=== PATIENT | female | born 1960 | race Caucasian/White ===

== ENCOUNTER 2018-10-21 20:51 | Observation (INO) ==
[2018-10-21 21:13] LABS: Basophils % 0.4 % (0.1-2.0); Eosinophils # 0.1 K/mm3 (0.0-0.4); Eosinophils % 2.2 % (0.1-12.0); Hematocrit 41.4 % (37.0-47.0); Hemoglobin 13.8 g/dL (12.2-16.2); Lymphocytes # 1.7 K/mm3 (0.7-4.5); Lymphocytes % 27.8 % (10-50); Mean Corpuscular HGB Conc 33.2 g/dL (31.8-35.4); Mean Corpuscular Hemoglobin 32.6 pg (27.0-31.2); Mean Corpuscular Volume 98.3 fl (81-99); Mean Platelet Volume 7.6 fl (7.4-10.4); Monocytes # 0.4 K/mm3 (0.1-1.0); Monocytes % 6.1 % (1.7-9.3); Neutrophils # 3.9 K/mm3 (1.8-7.8); Neutrophils % 63.4 % (37.0-80.0); Platelet Count 197 K/mm3 (142-424); Red Blood Count 4.22 M/mm3 (4.20-5.40); Red Cell Distribution Width 16.8 % (11.5-17.5); White Blood Count 6.2 K/mm3 (4.8-10.8)
--- NOTE | 2018-10-21 22:47 | Emergency Department Note ---
ED Disposition Clinical Impression: Multiple sclerosis Open fracture of wrist Qualifiers: Encounter type: initial encounter Laterality: left Qualified Code(s): S62.102B - Fracture of unspecified carpal bone, left wrist, initial encounter for open fracture Obesity Qualifiers: Obesity type: due to excess calories Obesity classification: adult class 3 (BMI >= 40) Serious obesity comorbidity presence: with serious comorbidity Body mass index: BMI 50.0-59.9 Qualified Code(s): E66.01 - Morbid (severe) obesity due to excess calories Disposition: Admitted As Inpatient Condition on Discharge: Serious - Critical Care Critical Care Time: No Attestation: On 10/21/18, the high probability of a clinically significant, sudden or life threatening deterioration of the following system(s) required my full and direct attention, intervention and personal management. The time I documented below is in addition to time spent performing reported procedures but includes the following listed in this critical care notation. Medical Decision Making - Medical Records Medical records reviewed: Yes: I reviewed the patient's medical records. - [place] Inquiry Pt receiving controlled substance: No Vital Signs: 10/21/18 20:52 10/21/18 23:00 10/21/18 23:30 Temperature 97.8 F 98.2 F Temperature Source Oral Oral Pulse Rate [Right] 72 72 77 Respiratory Rate 20 20 18 Blood Pressure [Right Arm] 167/67 H 158/69 H 161/78 H Blood Pressure Mean [Right Arm] 100 98 105 Blood Pressure Source [Right Arm] Automatic Cuff Automatic Cuff Blood Pressure Position [Right Arm] Supine Supine 02 Sat by Pulse Oximetry 95 95 92 L Oxygen Delivery Method Nasal Cannula Nasal Cannula Nasal Cannula Oxygen Flow Rate (LPM) 2 2 2 - Lab Data Lab results reviewed: Yes: I reviewed the patient's lab results. Lab Results 10/21/18 21:05: WBC 6.2, RBC 4.22, Hgb 13.8, Hct 41.4, MCV 98.3, MCH 32.6 H, MCHC 33.2, RDW 16.8, Plt Count 197, MPV 7.6, Neut % (Auto) 63.4, Lymph % (Auto) 27.8, [place] % (Auto) 6.1, Eos % (Auto) 2.2, Baso % (Auto) 0.4, Neut # (Auto) 3.9, Lymph # (Auto) 1.7, [place] # (Auto) 0.4, Eos # (Auto) 0.1, Baso # (Auto) 0.0 10/21/18 22:48: Sodium 138, Potassium 5.3 H, Chloride 98, Carbon Dioxide 36 H, Anion Gap 9.3, BUN 12, Creatinine 0.52 L, Estimated Creat Clear 101, Estimated GFR 121, Est GFR ( Amer) 146, Glucose 129 H, Calcium 8.7, Total Bilirubin 0.3, AST 21, ALT 23, Alkaline Phosphatase 70, Total Protein 7.7, Albumin 3.1 L, Globulin 4.6 H, Albumin/Globulin Ratio 0.7 L Result diagrams: 10/21/18 21:05 10/21/18 22:48 Orders (Tests/Meds): ED MEDICATIONS Generic Name Dose Route Start Last Admin Trade Name Freq PRN Reason Stop Dose Admin Cefazolin Sodium 1 gm/ Sodium 50 mls @ 100 mls/hr 10/21/18 23:00 10/21/18 23:03 Chloride IV 11/04/18 22:59 100 mls/hr Q8H DANAY Administration Protocol Gentamicin Sulfate 420 mg/ 110.5 mls @ 110.5 mls/hr 10/22/18 09:00 10/21/18 23:41 Sodium Chloride IV 11/05/18 08:59 110.5 mls/hr DAILY DANAY Administration Miscellaneous 1 each 10/21/18 23:30 10/21/18 23:40 Gentamicin Consult Request * 11/20/18 23:29 1 each CONSULT PHARMACY DANAY Administration Discontinued Medications Generic Name Dose Route Start Last Admin Trade Name Freq PRN Reason Stop Dose Admin Sodium Chloride 1,000 mls @ 999 mls/hr 10/21/18 21:15 10/21/18 21:08 Sod Chlor 0.9% 1000ml Bag IV 10/21/18 22:15 999 mls/hr .Q1H1M DANAY Administration Morphine Sulfate 2 mg 10/21/18 21:04 10/21/18 21:07 Morphine 2mg/Ml Syringe IV 10/21/18 21:05 2 mg ONCE ONE Administration Morphine Sulfate 2 mg 10/21/18 21:16 10/21/18 21:17 Morphine 2mg/Ml Syringe IV 10/21/18 21:17 2 mg ONCE ONE Administration Morphine Sulfate 2 mg 10/21/18 23:02 10/21/18 23:03 Morphine 2mg/Ml Syringe IV 10/21/18 23:03 2 mg ONCE ONE Administration Morphine Sulfate 2 mg 10/21/18 23:23 10/21/18 23:24 Morphine 2mg/Ml Syringe IV 10/21/18 23:24 2 mg ONCE ONE Administration Ondansetron HCl 4 mg 10/21/18 21:04 10/21/18 21:08 Zofran 4mg/2ml Vial IV 10/21/18 21:05 4 mg ONCE ONE Administration Tetanus/Diphtheria Toxoids 0.5 ml 10/21/18 22:53 10/21/18 22:54 Tenivac 0.5ml Syringe IM 10/21/18 22:54 0.5 ml .ONCE ONE Administration ORDERS Category Date Time Status CT cervical spine wo con Stat Cat Scan 10/21/18 21:[address] head/brain wo con Stat Cat Scan 10/21/18 21:[address] pelvis wo con Stat Cat Scan 10/21/18 21:52 Taken Forearm XR left 2 views [XR forearm LT 2V] Stat Exams 10/21/18 21:00 Taken Hand XR left minimum 3 views [XR hand LT min 3V] Stat Exams 10/21/18 21:03 Taken XR chest AP Stat Exams 10/21/18 21:00 Taken XR pelvis 1-2V Stat Exams 10/21/18 21:00 Taken ECG Request by /Vandana Stat Y 10/21/18 22:53 Ordered - Radiology Data #1 Image(s): Chest, Forearm, Wrist, Pelvis Image Reviewed: Yes I reviewed the patient's radiology image Preliminary Findings: Abnormal (open fx lt wrist ) - CT Data CT Scan: Head, C-Spine, Pelvis Time Received: 23:[address] Reviewed: Yes: I have viewed the radiologist's interpretation Preliminary Findings: No Fracture Seen - ECG Data Tracing #1 Normal Sinus Rhythm: Yes Ischemic changes: non-specific ST-T wave changes - Physician Consults Physician Consulted: francia Reason -: Pt condition Fall HPI - General Chief Complaint: Fall Stated Complaint: Fall Time Seen by Provider: 10/21/18 21:00 Mode of Arrival: EMS Source of Information: Patient, EMS, Medical Record Limitations: No Limitations Description of Symptoms (Recalled from ER Triage Doc. by RN): Per EMS from [place] pt had unwitnessed fall. Pt found floor beside her bed. Pt is poor historian to what happened. Pt is c/o left arm pain. 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 - History of Present Illness HPI Narrative: fell at [facility] tonight with injury to lt wrist complaint: fall Onset (ago): hour(s) Fall from: standing Fall witnessed: no Place fall occurred: care home/SNF Loss of consciousness: none Prolonged down time: no Symptoms prior to fall: none Context: tripped/slipped Location of injury: head, neck Location of injury - extremities: Left: forearm Severity: moderate Associated symptoms (after fall): denies - Related Data Home Medications Medication Instructions Recorded Confirmed acetaminophen 500 mg capsule 500 mg PO Q4H PRN cap 01/17/18 10/21/18 albuterol sulfate HFA 90 2 puff INHALATION TID g 01/17/18 10/21/18 mcg/actuation aerosol inhaler carvedilol 12.5 mg tablet 12.5 mg PO BID 01/17/18 10/21/18 dextromethorphan-guaifenesin 10 10 ml PO QIDP PRN 01/17/18 10/21/18 mg-100 mg/5 mL syrup diazepam 5 mg tablet 5 mg PO BID tab 01/17/18 10/21/18 divalproex 250 mg tablet,delayed 500 mg PO HS 01/17/18 10/21/18 release furosemide 40 mg tablet 40 mg PO BID tab 01/17/18 10/21/18 lactulose 10 gram/15 mL oral 30 ml PO DAILYP PRN 01/17/18 10/21/18 solution loperamide 2 mg capsule 2 mg PO Q3HP PRN 01/17/18 10/21/18 multivitamin with minerals capsule 1 tab-cap PO DAILY 01/17/18 10/21/18 norethindrone acetate 5 mg tablet 5 mg PO DAILY tab 01/17/18 10/21/18 olanzapine 15 mg tablet 30 mg PO QHS tab 01/17/18 10/21/18 potassium chloride ER 10 mEq 10 meq PO DAILY tab 01/17/18 10/21/18 tablet,extended release sertraline 100 mg tablet 100 mg PO Q24H 01/17/18 10/21/18 sertraline 50 mg tablet 50 mg PO Q24H 01/17/18 10/21/18 Allergies Allergy/AdvReac Type Severity Reaction Status Date / Time No Known Allergies Allergy Verified 10/21/18 08:18 [facility] History I have reviewed the patient's past medical history: Yes Medical History: Reports:: Congestive Heart Failure, Diabetes Mellitus Type 2, Hyperlipidemia, Hypertension, Lung Disease (CRF,COPD) Denies:: Diabetes Mellitus Type 1, Internal Pacemaker, Seizures Other Surgeries: No: Pacemaker - Social History Smoking Status: Never smoker Alcohol Intake: never - Psychiatric History Expresses thoughts of harming self/others: None Suicide Plan Description: No Plan ROS Obtained: Yes All systems reviewed & no additional complaints - Constitutional Constitutional: Denies fever(s) - Eyes Eyes: Denies change in vision, Reports other (eye surg today on rt -cataract surg ) - ENT Ears, Nose, Mouth, and Throat: Denies sore throat - Cardiovascular Cardiovascular: Denies chest pain - Respiratory Respiratory: No cough - Gastrointestinal Gastrointestingal: Denies: abdominal pain - Genitourinary Female Genitourinary: Denies hematuria - Musculoskeletal Musculoskeletal: Reports as per HPI, Reports joint pain, Reports joint swelling, Reports limited range of motion - Integumentary/Breasts Skin/Breast: Denies rash - Neurologic Neurologic: Denies seizure-like activity Physical Exam - General General appearance: alert, in no apparent distress, obese - Head Head exam: normocephalic - Eye Eye exam: Present: other (rt eye covered with patch ) - ENT ENT exam: Present: mucous membranes dry - Neck Neck exam: Present: trachea midline - Respiratory Respiratory exam: Present: other (dec bs bilat ). Absent: respiratory distress - Cardiovascular Cardiovascular exam: Present: regular rate, systolic murmur - Abdominal Exam Abdominal exam: Present: soft - Expanded Upper Extremity Exam Left Forearm/Wrist exam: Present: tenderness, swelling, other (open fx ) - Back Exam Back exam: Present: other (pelvis - stable ) - Neurological Exam Neurological exam: Present: alert, CN II-XII intact - Psychiatric Psychiatric exam: Absent: anxious - Skin Skin exam: Present: other (open fx lt wrist )
[2018-10-21 23:16] LABS: Albumin Level 3.1 gm/dL (3.4-5.0); Albumin/Globulin Ratio 0.7 (1.1-1.8); Anion Gap 9.3 mEq/L (5-15); Bilirubin,Total 0.3 mg/dL (0.2-1.0); Calcium 8.7 mg/dL (8.5-10.1); Globulin 4.6 gm/dl (1.3-3.2); Potassium 5.3 mmoL/L (3.5-5.1); Total Protein,Serum 7.7 gm/dL (6.4-8.2)
[2018-10-22 05:47] LABS: Basophils % 0.3 % (0.1-2.0); Eosinophils # 0.1 K/mm3 (0.0-0.4); Eosinophils % 1.7 % (0.1-12.0); Hematocrit 40.5 % (37.0-47.0); Hemoglobin 13.5 g/dL (12.2-16.2); Lymphocytes % 14.5 % (10-50); Mean Corpuscular HGB Conc 33.5 g/dL (31.8-35.4); Mean Corpuscular Hemoglobin 32.7 pg (27.0-31.2); Mean Corpuscular Volume 97.9 fl (81-99); Mean Platelet Volume 7.9 fl (7.4-10.4); Monocytes # 0.4 K/mm3 (0.1-1.0); Neutrophils # 5.3 K/mm3 (1.8-7.8); Neutrophils % 77.4 % (37.0-80.0); Platelet Count 125 K/mm3 (142-424); Red Blood Count 4.14 M/mm3 (4.20-5.40); Red Cell Distribution Width 17.2 % (11.5-17.5); White Blood Count 6.8 K/mm3 (4.8-10.8)
[2018-10-22 06:04] LABS: Anion Gap 5.8 mEq/L (5-15); Calcium 8.2 mg/dL (8.5-10.1); Potassium 4.8 mmoL/L (3.5-5.1)
--- NOTE | 2018-10-22 07:23 | Pharmacy Consult Notes ---
[facility] Pharmacy VTE Monitoring - Patient Demographics Admission date: 10/22/18 Report Date: 10/22/18 Time: 07:23 Allergies/Adverse Reactions: Patient Allergies No Known Allergies Allergy (Verified 10/21/18 08:18) Height: 1.52 m Weight: 128.452 kg Patient Problems: Current Active Problems Open fracture of wrist (Acute) Obesity (Acute) Multiple sclerosis (Chronic) - VTE Risk Labs: VTE Related Lab Results Hgb 13.5 g/dL (12.2-16.2) 10/22/18 05:35 Hct 40.5 % (37.0-47.0) 10/22/18 05:35 Plt Count 125 K/mm3 (142-424) L D 10/22/18 05:35 BUN 10 mg/dL (7-18) 10/22/18 05:35 Creatinine 0.72 mg/dL (0.55-1.02) D 10/22/18 05:35 Estimated Creat Clear 60 mL/min (50-200) 10/22/18 05:35 Was VTE Risk Assessment Performed: Yes VTE Score: 6 VTE Risk Level: Moderate Risk Clinical Trial Participant: No - Prophylaxis VTE Prophylaxis Ordered?: Yes Types of VTE Prophylaxis: TEDS Knee High
--- NOTE | 2018-10-22 08:01 | Pharmacy Consult Notes ---
- Pharmacy Consult Date: 10/22/18 Time: 07:59 Referring provider: DR. BLANDON Reason for Consult:: GENTAMICIN DOSING Allergies and ADEs:: Allergies Allergy/AdvReac Type Severity Reaction Status Date / Time No Known Allergies Allergy Verified 10/21/18 08:18 Home Medications:: Home Medications Medication Instructions Recorded Confirmed Type acetaminophen 500 mg capsule 500 mg PO Q4HP PRN cap 01/17/18 10/22/18 History albuterol sulfate HFA 90 2 puff INHALATION TID g 01/17/18 10/21/18 History mcg/actuation aerosol inhaler dextromethorphan-guaifenesin 10 10 ml PO QIDP PRN 01/17/18 10/21/18 History mg-100 mg/5 mL syrup diazepam 5 mg tablet 5 mg PO BID tab 01/17/18 10/21/18 History divalproex 250 mg tablet,delayed 500 mg PO HS 01/17/18 10/21/18 History release furosemide 40 mg tablet 40 mg PO BID tab 01/17/18 10/21/18 History lactulose 10 gram/15 mL oral 30 ml PO DAILYP PRN 01/17/18 10/21/18 History solution loperamide 2 mg capsule 2 mg PO Q3HP PRN 01/17/18 10/21/18 History multivitamin with minerals capsule 1 cap PO DAILY 01/17/18 10/22/18 History norethindrone acetate 5 mg tablet 5 mg PO DAILY tab 01/17/18 10/21/18 History olanzapine 15 mg tablet 30 mg PO HS tab 01/17/18 10/22/18 History potassium chloride ER 10 mEq 10 meq PO DAILY tab 01/17/18 10/21/18 History tablet,extended release sertraline 100 mg tablet 100 mg PO DAILY 01/17/18 10/22/18 History sertraline 50 mg tablet 50 mg PO DAILY 01/17/18 10/22/18 History Carvedilol [Coreg 12.5mg 12.5 mg PO BID 10/22/18 10/22/18 History Tablet] Carvedilol [Coreg 25mg Tablet] 25 mg PO BID 10/22/18 10/22/18 History Ipratropium/Albuterol Sulfate 3 ml IH QIDP PRN 10/22/18 10/22/18 History [Duoneb 3mL neb] Height: 1.52 m Weight: 128.452 kg Laboratory Results:: Laboratory Results - last 24 hr 10/21/18 21:05: WBC 6.2, RBC 4.22, Hgb 13.8, Hct 41.4, MCV 98.3, MCH 32.6 H, MCHC 33.2, RDW 16.8, Plt Count 197, MPV 7.6, Neut % (Auto) 63.4, Lymph % (Auto) 27.8, [place] % (Auto) 6.1, Eos % (Auto) 2.2, Baso % (Auto) 0.4, Neut # (Auto) 3.9, Lymph # (Auto) 1.7, [place] # (Auto) 0.4, Eos # (Auto) 0.1, Baso # (Auto) 0.0 10/21/18 22:48: Sodium 138, Potassium 5.3 H, Chloride 98, Carbon Dioxide 36 H, Anion Gap 9.3, BUN 12, Creatinine 0.52 L, Estimated Creat Clear 101, Estimated GFR 121, Est GFR ( Amer) 146, Glucose 129 H, Calcium 8.7, Total Bilirubin 0.3, AST 21, ALT 23, Alkaline Phosphatase 70, Total Protein 7.7, Albumin 3.1 L, Globulin 4.6 H, Albumin/Globulin Ratio 0.7 L 10/22/18 05:35: WBC 6.8, RBC 4.14 L, Hgb 13.5, Hct 40.5, MCV 97.9, MCH 32.7 H, MCHC 33.5, RDW 17.2, Plt Count 125 L D, MPV 7.9, Neut % (Auto) 77.4, Lymph % (Auto) 14.5, [place] % (Auto) 6.0, Eos % (Auto) 1.7, Baso % (Auto) 0.3, Neut # (Auto) 5.3, Lymph # (Auto) 1.0, [place] # (Auto) 0.4, Eos # (Auto) 0.1, Baso # (Auto) 0.0 10/22/18 05:35: Sodium 141, Potassium 4.8, Chloride 99, Carbon Dioxide 41 H*, Anion Gap 5.8, BUN 10, Creatinine 0.72 D, Estimated Creat Clear 60, Estimated GFR 83, Est GFR ( Amer) 100 D, Glucose 114 H, Calcium 8.2 L 10/22/18 05:35: Random Gentamicin 7.2 Medical History: Reports:: Congestive Heart Failure, Diabetes Mellitus Type 2, Hyperlipidemia, Hypertension, Lung Disease (CRF,COPD) Denies:: Cancer, Diabetes Mellitus Type 1, Internal Pacemaker, MRSA, Seizures Assessment and Plan - Assessment and plan all Dx Assessment and Plan for all problems:: PATIENT RECEIVED GENTAMICIN 420 MG X1 DOSE IN ER OVERNIGHT. RECOMMEND AT THIS TIME TO CONTINUE WITH GENTAMICIN 420 MG Q24H DOSING STARTING AGAIN AT 2200 TONIGHT. WILL OBTAIN LEVELS AT 4 AND 12 HOUR POST INFUSION TODAY TO DETERMINE CLEARANCE OF GENTAMICIN. PHARMACY WILL FOLLOW DAILY AND ADJUST APPROPRIATE. RENATE FORD, TIFFANYD
--- NOTE | 2018-10-22 08:28 | History & Physical Report ---
*Admission Date: 10/22/18 *Chief complaint: fall *History of present illness: [facility] fall [facility] pm with open fx lt wrist - pt or [facility] with no specific details - she had recent eye surg - does have some hx of falls - she was seen in the ed with open fx lt wrist - no other fx noted [facility] History I have reviewed the patient's past medical history: Yes Medical History: Reports:: Congestive Heart Failure, Diabetes Mellitus Type 2, Hyperlipidemia, Hypertension, Lung Disease (CRF,COPD) Denies:: Cancer, Diabetes Mellitus Type 1, Internal Pacemaker, MRSA, Seizures Other Medical History: Reports: Anemia, Cataracts, Hormone Therapy Other Surgeries: Yes: No Previous Surgery. No: Pacemaker Amputation: No Fractures: No - *Social History Smoking Status: Never smoker Alcohol Intake: never Occupational Status: other Housing: halfway Household Members: none - Psychiatric History Expresses thoughts of harming self/others: None Suicide Plan Description: No Plan *Family Hx:: Unable to obtain Review of Systems - Review of Systems Review of systems:: pertinent systems reviewed and negative unless documented below - Constitutional Denies fever(s) - Eyes Reports other (recent eye surg ), Denies change in vision - ENT Denies sore throat - *Cardiovascular Denies chest pain - *Respiratory Denies cough - *Gastrointestinal Denies vomiting - *Genitourinary Denies blood in urine - *Musculoskeletal Reports joint pain, Reports joint swelling, Reports limited joint movement - Integumentary/Breasts Denies rash - *Neurologic Denies seizure-like activity - Psychiatric Denies anxiety Meds Home Medications Medication Instructions Recorded Confirmed Type acetaminophen 500 mg capsule 500 mg PO Q4HP PRN cap 01/17/18 10/22/18 History albuterol sulfate HFA 90 2 puff INHALATION TID g 01/17/18 10/21/18 History mcg/actuation aerosol inhaler dextromethorphan-guaifenesin 10 10 ml PO QIDP PRN 01/17/18 10/21/18 History mg-100 mg/5 mL syrup diazepam 5 mg tablet 5 mg PO BID tab 01/17/18 10/21/18 History divalproex 250 mg tablet,delayed 500 mg PO HS 01/17/18 10/21/18 History release furosemide 40 mg tablet 40 mg PO BID tab 01/17/18 10/21/18 History lactulose 10 gram/15 mL oral 30 ml PO DAILYP PRN 01/17/18 10/21/18 History solution loperamide 2 mg capsule 2 mg PO Q3HP PRN 01/17/18 10/21/18 History multivitamin with minerals capsule 1 cap PO DAILY 01/17/18 10/22/18 History norethindrone acetate 5 mg tablet 5 mg PO DAILY tab 01/17/18 10/21/18 History olanzapine 15 mg tablet 30 mg PO HS tab 01/17/18 10/22/18 History potassium chloride ER 10 mEq 10 meq PO DAILY tab 01/17/18 10/21/18 History tablet,extended release sertraline 100 mg tablet 100 mg PO DAILY 01/17/18 10/22/18 History sertraline 50 mg tablet 50 mg PO DAILY 01/17/18 10/22/18 History Carvedilol [Coreg 12.5mg 12.5 mg PO BID 10/22/18 10/22/18 History Tablet] Carvedilol [Coreg 25mg Tablet] 25 mg PO BID 10/22/18 10/22/18 History Ipratropium/Albuterol Sulfate 3 ml IH QIDP PRN 10/22/18 10/22/18 History [Duoneb 3mL neb] Allergies Allergy/AdvReac Type Severity Reaction Status Date / Time No Known Allergies Allergy Verified 10/21/18 08:18 Exam Vital signs and Labs for Last 24 Hours: Temp Pulse Resp BP Pulse Ox 97.1 F L 91 H 18 145/85 H 91 L 10/22/18 08:00 10/22/18 08:00 10/22/18 08:00 10/22/18 08:00 10/22/18 08:00 Laboratory Results - last 24 hr 10/21/18 21:05: WBC 6.2, RBC 4.22, Hgb 13.8, Hct 41.4, MCV 98.3, MCH 32.6 H, MCHC 33.2, RDW 16.8, Plt Count 197, MPV 7.6, Neut % (Auto) 63.4, Lymph % (Auto) 27.8, [place] % (Auto) 6.1, Eos % (Auto) 2.2, Baso % (Auto) 0.4, Neut # (Auto) 3.9, Lymph # (Auto) 1.7, [place] # (Auto) 0.4, Eos # (Auto) 0.1, Baso # (Auto) 0.0 10/21/18 22:48: Sodium 138, Potassium 5.3 H, Chloride 98, Carbon Dioxide 36 H, Anion Gap 9.3, BUN 12, Creatinine 0.52 L, Estimated Creat Clear 101, Estimated GFR 121, Est GFR ( Amer) 146, Glucose 129 H, Calcium 8.7, Total Bilirubin 0.3, AST 21, ALT 23, Alkaline Phosphatase 70, Total Protein 7.7, Albumin 3.1 L, Globulin 4.6 H, Albumin/Globulin Ratio 0.7 L 10/22/18 05:35: WBC 6.8, RBC 4.14 L, Hgb 13.5, Hct 40.5, MCV 97.9, MCH 32.7 H, MCHC 33.5, RDW 17.2, Plt Count 125 L D, MPV 7.9, Neut % (Auto) 77.4, Lymph % (Auto) 14.5, [place] % (Auto) 6.0, Eos % (Auto) 1.7, Baso % (Auto) 0.3, Neut # (Auto) 5.3, Lymph # (Auto) 1.0, [place] # (Auto) 0.4, Eos # (Auto) 0.1, Baso # (Auto) 0.0 10/22/18 05:35: Sodium 141, Potassium 4.8, Chloride 99, Carbon Dioxide 41 H*, Anion Gap 5.8, BUN 10, Creatinine 0.72 D, Estimated Creat Clear 60, Estimated GFR 83, Est GFR ( Amer) 100 D, Glucose 114 H, Calcium 8.2 L 10/22/18 05:35: Random Gentamicin 7.2 I & O for Last 24 hours: Intake & Output 10/19/18 10/20/18 10/21/18 10/22/18 11:59 11:59 11:59 11:59 Intake Total 348 / 348 Balance 348 / 348 Weight 283 lb 3 oz - Constitutional no acute distress, obese - *Routine HEENT Exam Head: Present: normocephalic Eye: Present: EOMI, PERRL ENT: Present: mucous membranes dry - *Routine Neck Exam Present: supple - *Routine Respiratory Exam Present: CTA bilaterally - *Routine Cardiovascular Exam Present: RRR, murmur - *Routine Abdominal Exam Present: soft - *Routine Extremities Exam Absent: calf tenderness Comments: swollen lt wrist - dressed but has small open area lt wrist - *Routine Skin Exam Comments: open fx - *Routine Neurological Exam Present: alert, CN II-XII intact - Routine Psychiatric Exam Present: unable to assess Assessment and Plan (1) Open fracture of wrist Current visit: Yes Status: Acute Qualifiers: Encounter type: initial encounter Laterality: left Qualified Code(s): S62.102B - Fracture of unspecified carpal bone, left wrist, initial encounter for open fracture Category: Medical Code(s): S62.109B - Fracture of unspecified carpal bone, unspecified wrist, initial encounter for open fracture (2) Obesity Current visit: Yes Status: Acute Qualifiers: Obesity type: due to excess calories Obesity classification: adult class 3 (BMI >= 40) Serious obesity comorbidity presence: with serious comorbidity Body mass index: BMI 50.0-59.9 Qualified Code(s): E66.01 - Morbid (severe) obesity due to excess calories; Z68.43 - Body mass index (BMI) 50-59.9, adult Category: Medical Code(s): E66.9 - Obesity, unspecified
--- NOTE | 2018-10-22 08:46 | Consult Report ---
*Admission Date: 10/22/18 *Chief complaint: Fall-left distal radius fracture *History of present illness: Patient is a 58-year-old female admitted to hospital via the ER for management of a grade 1 open fracture of her left distal radius. Patient is a resident of skilled nursing and has history of dementia, multiple sclerosis, heart failure, hypertension, COPD, type 2 diabetes mellitus, morbid obesity, paranoid schizophrenia and anemia among others. Given her mental status, patient is not able to give any history. History as per the ER notes. The ER notes is documented as patient having had an unwitnessed fall at the skilled nursing. Patient was apparently found on the floor beside her bed. The previous day she had cataract surgery at [facility]. On evaluation in the ER, a small, about 0.5 cm, laceration was noted over the ulnar aspect of the left wrist. X-ray showed a comminuted and displaced intra-articular fracture of the left distal radius. Patient was started on IV Ancef and gentamicin, splinted and admitted to hospital for further management. I was consulted for orthopedic input and management. Review of Systems - Review of Systems Review of systems:: unable to obtain [facility] History I have reviewed the patient's past medical history: Yes Medical History: Reports:: Congestive Heart Failure, Diabetes Mellitus Type 2, Hyperlipidemia, Hypertension, Lung Disease (CRF,COPD) Denies:: Cancer, Diabetes Mellitus Type 1, Internal Pacemaker, MRSA, Seizures Other Medical History: Reports: Anemia, Cataracts, Hormone Therapy Other Surgeries: Yes: No Previous Surgery. No: Pacemaker Amputation: No Fractures: No - *Social History Smoking Status: Never smoker Alcohol Intake: never Occupational Status: other Housing: skilled nursing Household Members: none - Psychiatric History Expresses thoughts of harming self/others: None Suicide Plan Description: No Plan *Family Hx:: Unable to obtain Meds Home Medications Medication Instructions Recorded Confirmed Type acetaminophen 500 mg capsule 500 mg PO Q4HP PRN cap 01/17/18 10/22/18 History albuterol sulfate HFA 90 2 puff INHALATION TID g 01/17/18 10/21/18 History mcg/actuation aerosol inhaler dextromethorphan-guaifenesin 10 10 ml PO QIDP PRN 01/17/18 10/21/18 History mg-100 mg/5 mL syrup diazepam 5 mg tablet 5 mg PO BID tab 01/17/18 10/21/18 History divalproex 250 mg tablet,delayed 500 mg PO HS 01/17/18 10/21/18 History release furosemide 40 mg tablet 40 mg PO BID tab 01/17/18 10/21/18 History lactulose 10 gram/15 mL oral 30 ml PO DAILYP PRN 01/17/18 10/21/18 History solution loperamide 2 mg capsule 2 mg PO Q3HP PRN 01/17/18 10/21/18 History multivitamin with minerals capsule 1 cap PO DAILY 01/17/18 10/22/18 History norethindrone acetate 5 mg tablet 5 mg PO DAILY tab 01/17/18 10/21/18 History olanzapine 15 mg tablet 30 mg PO HS tab 01/17/18 10/22/18 History sertraline 100 mg tablet 100 mg PO DAILY 01/17/18 10/22/18 History Carvedilol [Coreg 12.5mg 12.5 mg PO BID 10/22/18 10/22/18 History Tablet] Ipratropium/Albuterol Sulfate 3 ml IH QIDP PRN 10/22/18 10/22/18 History [Duoneb 3mL neb] Allergies Allergy/AdvReac Type Severity Reaction Status Date / Time No Known Allergies Allergy Verified 10/21/18 08:18 Exam Vital signs and Labs for Last 24 Hours: Temp Pulse Resp BP Pulse Ox 97.1 F L 91 H 18 145/85 H 91 L 10/22/18 08:00 10/22/18 08:00 10/22/18 08:00 10/22/18 08:00 10/22/18 08:00 Laboratory Results - last 24 hr 10/21/18 21:05: WBC 6.2, RBC 4.22, Hgb 13.8, Hct 41.4, MCV 98.3, MCH 32.6 H, MCHC 33.2, RDW 16.8, Plt Count 197, MPV 7.6, Neut % (Auto) 63.4, Lymph % (Auto) 27.8, [place] % (Auto) 6.1, Eos % (Auto) 2.2, Baso % (Auto) 0.4, Neut # (Auto) 3.9, Lymph # (Auto) 1.7, [place] # (Auto) 0.4, Eos # (Auto) 0.1, Baso # (Auto) 0.0 10/21/18 22:48: Sodium 138, Potassium 5.3 H, Chloride 98, Carbon Dioxide 36 H, Anion Gap 9.3, BUN 12, Creatinine 0.52 L, Estimated Creat Clear 101, Estimated GFR 121, Est GFR ( Amer) 146, Glucose 129 H, Calcium 8.7, Total Bilirubin 0.3, AST 21, ALT 23, Alkaline Phosphatase 70, Total Protein 7.7, Albumin 3.1 L, Globulin 4.6 H, Albumin/Globulin Ratio 0.7 L 10/22/18 05:35: WBC 6.8, RBC 4.14 L, Hgb 13.5, Hct 40.5, MCV 97.9, MCH 32.7 H, MCHC 33.5, RDW 17.2, Plt Count 125 L D, MPV 7.9, Neut % (Auto) 77.4, Lymph % (Auto) 14.5, [place] % (Auto) 6.0, Eos % (Auto) 1.7, Baso % (Auto) 0.3, Neut # (Auto) 5.3, Lymph # (Auto) 1.0, [place] # (Auto) 0.4, Eos # (Auto) 0.1, Baso # (Auto) 0.0 10/22/18 05:35: Sodium 141, Potassium 4.8, Chloride 99, Carbon Dioxide 41 H*, Anion Gap 5.8, BUN 10, Creatinine 0.72 D, Estimated Creat Clear 60, Estimated GFR 83, Est GFR ( Amer) 100 D, Glucose 114 H, Calcium 8.2 L 10/22/18 05:35: Random Gentamicin 7.2 I & O for Last 24 hours: Intake & Output 10/19/18 10/20/18 10/21/18 10/22/18 11:59 11:59 11:59 11:59 Intake Total 348 / 348 Balance 348 / 348 Weight 283 lb 3 oz - Constitutional no acute distress, obese, somnolent - *Routine HEENT Exam Head: Present: normocephalic, atraumatic ENT: Present: mucous membranes moist - *Routine Neck Exam Present: supple, full ROM, trachea midline. Absent: lymphadenopathy - *Routine Respiratory Exam Present: CTA bilaterally. Absent: respiratory distress - *Routine Cardiovascular Exam Present: RRR, Normal S1, Normal S2 - *Routine Abdominal Exam Present: soft, normoactive bowel sounds. Absent: organomegaly - *Routine Extremities Exam Comments: On examination of the left upper extremity, she has a removable wrist splint and dressings over the volar ulnar aspect. Out of the splint and dressings, there is a small, 0.5-1 cm, transverse laceration over the volar ulnar aspect of the left wrist just distal to the ulnar head. Minimal bleeding noted from the wound. There is diffuse swelling, ecchymosis and tenderness all around the distal forearm and wrist joint. There is also diffuse swelling of her hand and fingers. No swelling or tenderness noted over the elbow joint. She is actively moving the fingers. Capillary refill is brisk. Difficult to evaluate for sensory status given the patient's mental condition. No other acute injuries noted. Diagnostic imaging: X-rays of her left forearm/wrist and hand reviewed along with radiologist report. The x-rays are showing a comminuted, displaced distal radius fracture with intra-articular extension to both the distal radial and radiocarpal joints. The proximal forearm and elbow joint not show any acute findings. Minor degenerative changes noted over the radiocapitellar joint. - *Routine Skin Exam Present: warm, normal turgor, wounds (Left wrist) - *Routine Neurological Exam Present: alert, moving all extremities - Routine Psychiatric Exam Present: cooperative Results - Labs Result Diagrams: 10/22/18 05:35 10/22/18 05:35 Labs: Abnormal lab results 10/21/18 10/21/18 10/22/18 Range/Units 21:05 22:48 05:35 RBC 4.14 L (4.20-5.40) M/mm3 MCH 32.6 H 32.7 H (27.0-31.2) pg Plt Count 125 L D (142-424) K/mm3 Potassium 5.3 H (3.5-5.1) mmoL/L Carbon Dioxide 36 H (21.0-32.0) mmol/L Creatinine 0.52 L (0.55-1.02) mg/dL Glucose 129 H (74-106) mg/dL Calcium (8.5-10.1) mg/dL Albumin 3.1 L (3.4-5.0) gm/dL Globulin 4.6 H (1.3-3.2) gm/dl Albumin/Globulin Ratio 0.7 L (1.1-1.8) 10/22/18 Range/Units 05:35 RBC (4.20-5.40) M/mm3 MCH (27.0-31.2) pg Plt Count (142-424) K/mm3 Potassium (3.5-5.1) mmoL/L Carbon Dioxide 41 H* (21.0-32.0) mmol/L Creatinine (0.55-1.02) mg/dL Glucose 114 H (74-106) mg/dL Calcium 8.2 L (8.5-10.1) mg/dL Albumin (3.4-5.0) gm/dL Globulin (1.3-3.2) gm/dl Albumin/Globulin Ratio (1.1-1.8) H & H 10/21/18 10/22/18 Range/Units 21:05 05:35 Hgb 13.8 13.5 (12.2-16.2) g/dL Hct 41.4 40.5 (37.0-47.0) % All other labs normal. Assessment and Plan (1) Open fracture of wrist Status: Acute Qualifiers: Encounter type: initial encounter Laterality: left Qualified Code(s): S62.102B - Fracture of unspecified carpal bone, left wrist, initial encounter for open fracture Category: Medical Code(s): S62.109B - Fracture of unspecified carpal bone, unspecified wrist, initial encounter for open fracture (2) Obesity Status: Acute Qualifiers: Obesity type: due to excess calories Obesity classification: adult class 3 (BMI >= 40) Serious obesity comorbidity presence: with serious comorbidity Body mass index: BMI 50.0-59.9 Qualified Code(s): E66.01 - Morbid (severe) obesity due to excess calories; Z68.43 - Body mass index (BMI) 50-59.9, adult Category: Medical Code(s): E66.9 - Obesity, unspecified - Assessment and plan all Dx Assessment and Plan for all problems:: Patient is a 58-year-old female who sustained a grade 1 open displaced fracture of her left distal radius following an unwitnessed fall at the skilled nursing. The distal radius fracture is displaced, comminuted and unstable with intra-articular extension. Patient was admitted from the ER for observation, started on IV antibiotics and prepared for surgery. Following a detailed evaluation, and recommended surgery in the form of wound debridement left wrist and open reduction and internal fixation of the left distal radius fracture. Depending on the state of the wound and contamination, she may need multiple procedures for debridement and may need delayed closure of the laceration. We have contacted the patient's healthcare proxy and informed as to the management plan, risks and benefits and alternatives. A verbal consent was obtained. The operative site/side was marked. Betadine gauze dressing applied over the laceration and the splint was reapplied. Following appropriate medical and anesthetic evaluation, I am planning to take her to the OR for surgery at the earliest opportunity. Medical management as per Dr. Michaels.
--- NOTE | 2018-10-22 14:15 | Pharmacy Consult Notes ---
- Pharmacy Consult Date: 10/22/18 Time: 14:11 Referring provider: DR. BLANDON Reason for Consult:: GENTAMICIN LEVELS Allergies and ADEs:: Allergies Allergy/AdvReac Type Severity Reaction Status Date / Time No Known Allergies Allergy Verified 10/21/18 08:18 Home Medications:: Home Medications Medication Instructions Recorded Confirmed Type acetaminophen 500 mg capsule 500 mg PO Q4HP PRN cap 01/17/18 10/22/18 History albuterol sulfate HFA 90 2 puff INHALATION TID g 01/17/18 10/21/18 History mcg/actuation aerosol inhaler dextromethorphan-guaifenesin 10 10 ml PO QIDP PRN 01/17/18 10/21/18 History mg-100 mg/5 mL syrup diazepam 5 mg tablet 5 mg PO BID tab 01/17/18 10/21/18 History divalproex 250 mg tablet,delayed 500 mg PO HS 01/17/18 10/21/18 History release furosemide 40 mg tablet 40 mg PO BID tab 01/17/18 10/21/18 History lactulose 10 gram/15 mL oral 30 ml PO DAILYP PRN 01/17/18 10/21/18 History solution loperamide 2 mg capsule 2 mg PO Q3HP PRN 01/17/18 10/21/18 History multivitamin with minerals capsule 1 cap PO DAILY 01/17/18 10/22/18 History norethindrone acetate 5 mg tablet 5 mg PO DAILY tab 01/17/18 10/21/18 History olanzapine 15 mg tablet 30 mg PO HS tab 01/17/18 10/22/18 History potassium chloride ER 10 mEq 10 meq PO DAILY tab 01/17/18 10/21/18 History tablet,extended release sertraline 100 mg tablet 100 mg PO DAILY 01/17/18 10/22/18 History sertraline 50 mg tablet 50 mg PO DAILY 01/17/18 10/22/18 History Carvedilol [Coreg 12.5mg 12.5 mg PO BID 10/22/18 10/22/18 History Tablet] Carvedilol [Coreg 25mg Tablet] 25 mg PO BID 10/22/18 10/22/18 History Ipratropium/Albuterol Sulfate 3 ml IH QIDP PRN 10/22/18 10/22/18 History [Duoneb 3mL neb] Height: 1.52 m Weight: 128.452 kg Laboratory Results:: Laboratory Results - last 24 hr 10/21/18 21:05: WBC 6.2, RBC 4.22, Hgb 13.8, Hct 41.4, MCV 98.3, MCH 32.6 H, MCHC 33.2, RDW 16.8, Plt Count 197, MPV 7.6, Neut % (Auto) 63.4, Lymph % (Auto) 27.8, [place] % (Auto) 6.1, Eos % (Auto) 2.2, Baso % (Auto) 0.4, Neut # (Auto) 3.9, Lymph # (Auto) 1.7, [place] # (Auto) 0.4, Eos # (Auto) 0.1, Baso # (Auto) 0.0 10/21/18 22:48: Sodium 138, Potassium 5.3 H, Chloride 98, Carbon Dioxide 36 H, Anion Gap 9.3, BUN 12, Creatinine 0.52 L, Estimated Creat Clear 101, Estimated GFR 121, Est GFR ( Amer) 146, Glucose 129 H, Calcium 8.7, Total Bilirubin 0.3, AST 21, ALT 23, Alkaline Phosphatase 70, Total Protein 7.7, Albumin 3.1 L, Globulin 4.6 H, Albumin/Globulin Ratio 0.7 L 10/22/18 05:35: WBC 6.8, RBC 4.14 L, Hgb 13.5, Hct 40.5, MCV 97.9, MCH 32.7 H, MCHC 33.5, RDW 17.2, Plt Count 125 L D, MPV 7.9, Neut % (Auto) 77.4, Lymph % (Auto) 14.5, [place] % (Auto) 6.0, Eos % (Auto) 1.7, Baso % (Auto) 0.3, Neut # (Auto) 5.3, Lymph # (Auto) 1.0, [place] # (Auto) 0.4, Eos # (Auto) 0.1, Baso # (Auto) 0.0 10/22/18 05:35: Sodium 141, Potassium 4.8, Chloride 99, Carbon Dioxide 41 H*, Anion Gap 5.8, BUN 10, Creatinine 0.72 D, Estimated Creat Clear 60, Estimated GFR 83, Est GFR ( Amer) 100 D, Glucose 114 H, Calcium 8.2 L 10/22/18 05:35: Random Gentamicin 7.2 10/22/18 13:18: Random Gentamicin 1.9 L Medical History: Reports:: Congestive Heart Failure, Diabetes Mellitus Type 2, Hyperlipidemia, Hypertension, Lung Disease (CRF,COPD) Denies:: Cancer, Diabetes Mellitus Type 1, Internal Pacemaker, MRSA, Seizures Assessment and Plan (1) Open fracture of wrist Current visit: Yes Status: Acute Qualifiers: Encounter type: initial encounter Laterality: left Qualified Code(s): S62.102B - Fracture of unspecified carpal bone, left wrist, initial encounter for open fracture Category: Medical Code(s): S62.109B - Fracture of unspecified carpal bone, unspecified wrist, initial encounter for open fracture (2) Obesity Current visit: Yes Status: Acute Qualifiers: Obesity type: due to excess calories Obesity classification: adult class 3 (BMI >= 40) Serious obesity comorbidity presence: with serious comorbidity Body mass index: BMI 50.0-59.9 Qualified Code(s): E66.01 - Morbid (severe) obesity due to excess calories; Z68.43 - Body mass index (BMI) 50-59.9, adult Category: Medical Code(s): E66.9 - Obesity, unspecified - Assessment and plan all Dx Assessment and Plan for all problems:: GENTAMICIN LEVELS 4.75-HOUR LEVEL: 7.2 MCG/ML CALCULATED PEAK: 14.35 MCG/ML 12-HOUR LEVEL: 1.9 MCG/ML CALCULATED TROUGH: 0.21 MCG/ML BASED ON GENTAMICIN LEVELS AND PATIENT FACTORS, RECOMMEND CONTINUING GENTAMICIN 420 MG IV Q24H. PHARMACY WILL CONTINUE TO MONITOR DAILY AND ADJUST APPROPRIATE.
--- NOTE | 2018-10-22 18:10 | Progress Note ---
[facility] Anesthesia Record Part I Intake, IV Amount: 1,800 Estimated blood loss (mL): 10 Urine output (mL): 0 Blood Pressure: 162/87 SaO2: 93 Pulse Rate: 86 Respiratory Rate: 24 Temperature: 97 F Patient is:: Drowsy, Stable Stable to PACU at:: 18:00
--- NOTE | 2018-10-22 18:10 | Progress Note ---
[facility] Anesthesia Record Part II Discharge Time: 18:30 Destination: 2nd floor PACU nurse assessment reviewed?: Yes Patient Condition:: Good Anesthesia Complications:: None
--- NOTE | 2018-10-22 19:15 | Operative Note ---
Pre-op Diagnosis:: Grade 1 open, comminuted, displaced intra-articular fracture, left distal radius Post-op Diagnosis:: Same Procedure performed:: 1. Wound debridement, left wrist 2. Open reduction internal fixation, left distal radius fracture Surgeon:: Rashid Forbes MD PROFESSOR OF INDUSTRIAL TECHNOLOGY:: Thiago Fulton Anesthesia: GETA Estimated blood loss (mL): 10 Clinical Note:: Patient is an 58-year-old female who sustained a grade 1 open displaced fracture of her left distal radius (Colles fracture) when she fell down at the senior care. The distal radius fracture is displaced, comminuted and unstable with intra-articular extension. Patient was admitted from the ER for observation, started on IV antibiotics and prepared for surgery. Following a detailed discussion with the patient's healthcare proxy about the management options including both nonsurgical and surgical, she elected to proceed with surgical remediation. I discussed the details of the procedure, risks and benefi ts, alternatives and the expected outcomes. The complications discussed include but are not limited to infection, bleeding, injury to nerves, blood vessels and tendons, malunion, nonunion, loss of fixation, stiffness, CRPS as well as the anesthetic complications including heart attack, stroke and even . I also discussed about the likely need for multiple surgical procedures. The operative side was marked and the consent form was reviewed and signed. Operative findings:: Displaced, comminuted and unstable fracture of the left distal radius. There is a skin laceration over the ulnar aspect of the wrist measuring about 0.5-1 cm in size. There is no obvious contamination or foreign body material noted. Her distal radius fracture is displaced and comminuted with intra-articular extension. Bone quality is satisfactory. Operative note:: Patient was brought to the operating room and placed supine on the table. The left upper extremity was placed over an arm table. All the bony prominences were well padded. A general anesthesia was administered by the anesthetic team. 2 g of IV Ancef was administered by the maintenance technician 3rd shift for preoperative prophylaxis. A well-padded tourniquet cuff was applied over the left upper arm. The left upper extremity was prepped and draped in the usual sterile fashion. A preprocedure timeout was performed as per hospital protocol. The skin incision was marked over the distal forearm anteriorly for the volar approach to distal radius. Before making the skin incision, the laceration was thoroughly washed out with 2 L of normal saline. The skin edges of the laceration was freshened and debrided. No obvious contamination or foreign body material was noted in the wound. We then proceeded to perform open reduction and internal fixation of the distal radius fracture. The limb was exsanguinated with Esmarch bandage and tourniquet was inflated to 250 mmHg. Please see the nursing notes for the total tourniquet time. Skin incision was made over the distal radius for an anterior volar approach. The incision was deepened through the subcutaneous tissue and the FCR tendon was identified. The FCR sheath was opened and the tendon retracted medially. The deeper dissection was carried through the bed of the FCR tendon to expose the FPL muscle and tendon which were retracted medially. The pronator quadratus was released in an L-shaped fashion on the radial and distal margins and elevated from the bone with the periosteal elevator. This exposed the distal radius fracture and the distal shaft of the r adius. The fracture site was cleared of hematoma and, the fracture as well as the soft tissues was thoroughly irrigated with 3 L of normal saline. The median nerve was inspected and noted to be in continuity without any obvious injury. The fracture was noted to be grossly comminuted on the distal radius was noted to be somewhat deformed. The fracture was then reduced in a stable fashion under direct vision/under C-arm control and a 4 holed Maddison distal radius plate was positioned across the fracture site and provisionally secured with K wires. After confirming the satisfactory reduction and the position of the plate under fluoroscopic guidance, a drill hole was made through the oval hole and the plate was secured to the proximal fragment with a cortical screw. Then the distal fragment was secured to the plate with both locking and nonlocking screws in an appropriate fashion. Then the fixation of the plate to the proximal fragment was completed with further nonlocking and locking cortical screws. This gave us a very good reduction of the fracture and a stable fixation. The wrist was put through the range of motion and the appropriate placement of the screws and their lengths were confirmed under fluoroscopy screening including a 20 degree lateral view. No intra-articular screw penetration was noted. We then screened the distal radioulnar joint under fluoroscopic guidance. The ulnar head fracture was noted to be well reduced and stable after the distal radius fracture was reduced and fixed. Therefore we have decided not to fix the distal ulna. The distal radioulnar joint was noted to be stable. The final fluoroscopic images were obtained and stored digitally. The tourniquet was deflated and hemostasis obtained with bipolar diathermy. The wounds were again thoroughly washed out with 2 more liters of normal saline. The pronator quadratus was repaired with 3-0 Vicryl sutures. Then the incision was closed in layers with 3-0 Vicryl to subcutaneous tissue and 3-0 Ethilon interrupted sutures to skin. The small laceration over the ulnar aspect of the wrist was sutured with interrupted 3-0 Vicryl and 3-0 Ethilon sutures. Not sutured but approximated with Steri-Strips. At the end of the procedure we also noted a 2 cm superficial skin laceration over the dorsum of the hand. This was irrigated with normal saline and approximated with Steri-Strips. Sterile dressings were applied to all the wounds. The tourniquet cuff was removed. A well-padded Ortho-Glass sugar tongs splint was applied. Patient was then reversed from the anesthetic and transferred onto the [facility]. She was then transported to the postoperative recovery area in a stable condition. She tolerated the procedure well and there were other complications except for the superficial skin laceration noted as above. Swabs, needles and instrument counts were correct at the end of the procedure as per the scrub team. She will receive IV antibiotics for 48 hours at which point well inspect the wounds. Advised to keep the hand elevated and mobilize the fingers. Implant: Deloit distal radius locking plate and screws. 6 L of normal saline with bacitracin pulse lavage 10 cc of osteo-boost with 1 g of vancomycin and 120 mg of gentamicin-two thirds of the beats were used 3-0 Vicryl and 3-0 Ethilon 2 g of Ancef Patient is already on IV Ancef and gentamicin Anaerobic and aerobic culture swabs 30 cc of 0.5% Marcaine Ortho-Glass sugar tong splint Condition: stable Disposition: floor Specimens:: Aerobic and anaerobic wound swabs for culture and sensitivity Complications:: None
--- NOTE | 2018-10-23 09:20 | Progress Note ---
Internal Medicine - PN: Subj *Date: 10/23/18 *Time: 09:19 Exam Vital signs and Labs for Last 24 Hours: Temp Pulse Resp BP Pulse Ox 98.2 F 102 H 20 157/77 H 95 10/23/18 08:00 10/23/18 08:00 10/23/18 08:00 10/23/18 08:00 10/23/18 08:00 Laboratory Results - last 24 hr 10/22/18 13:18: Random Gentamicin 1.9 L I & O for Last 24 hours: Intake & Output 10/20/18 10/21/18 10/22/18 10/23/18 11:59 11:59 11:59 11:59 Intake Total 348 / 348 2039 Balance 348 / 348 2039 Weight 283 lb 3 oz 289 lb 3 oz Microbiology Reports for the Last 24 Hours: Microbiology 10/22/18 14:45 Wrist - Left Gram Stain - Final - *Routine HEENT Exam Head: Present: normocephalic Eye: Present: EOMI, PERRL ENT: Present: mucous membranes moist - *Routine Neck Exam Present: supple. Absent: lymphadenopathy - *Routine Respiratory Exam Present: CTA bilaterally - *Routine Cardiovascular Exam Present: RRR - *Routine Abdominal Exam Present: soft, normoactive bowel sounds. Absent: tenderness - *Routine Extremities Exam Present: pulses intact. Absent: cyanosis, clubbing, edema Comments: Seen and splint to left wrist - *Routine Skin Exam Present: warm. Absent: rash - *Routine Neurological Exam Present: alert, oriented X3 Assessment and Plan (1) Open fracture of wrist Current visit: Yes Status: Acute Qualifiers: Encounter type: initial encounter Laterality: left Qualified Code(s): S62.102B - Fracture of unspecified carpal bone, left wrist, initial encounter for open fracture Category: Medical Code(s): S62.109B - Fracture of unspecified carpal bone, unspecified wrist, initial encounter for open fracture (2) Obesity Current visit: Yes Status: Acute Qualifiers: Obesity type: due to excess calories Obesity classification: adult class 3 (BMI >= 40) Serious obesity comorbidity presence: with serious comorbidity Body mass index: BMI 50.0-59.9 Qualified Code(s): E66.01 - Morbid (severe) obesity due to excess calories; Z68.43 - Body mass index (BMI) 50-59.9, adult Category: Medical Code(s): E66.9 - Obesity, unspecified - Assessment and plan all Dx Assessment and Plan for all problems:: Rounded with Dr. Michaels all orders per Brando
--- NOTE | 2018-10-23 10:38 | Progress Note ---
Subjective Date: 10/23/18 Time: 09:15 Principal diagnosis: Grade 1 open fracture, left distal radius Interval history: Patient is status post wound debridement and ORIF left distal radius fracture post op day #1. Patient is lying down in bed. Patient has severe dementia and most of the time it is difficult to communicate with her. Nursing staff informs me that she has been doing well without any problems overnight. No history of any nausea or vomiting. No history of any fevers, cough, chest pain, shortness of breath or palpitations. PN: Obj Ex Vital signs: Temp Pulse Resp BP Pulse Ox 98.2 F 102 H 20 157/77 H 95 10/23/18 08:00 10/23/18 08:00 10/23/18 08:00 10/23/18 08:00 10/23/18 08:00 Narrative: Lab Results 10/21/18 21:05: WBC 6.2, RBC 4.22, Hgb 13.8, Hct 41.4, MCV 98.3, MCH 32.6 H, MCHC 33.2, RDW 16.8, Plt Count 197, MPV 7.6, Neut % (Auto) 63.4, Lymph % (Auto) 27.8, Castro % (Auto) 6.1, Eos % (Auto) 2.2, Baso % (Auto) 0.4, Neut # (Auto) 3.9, Lymph # (Auto) 1.7, Castro # (Auto) 0.4, Eos # (Auto) 0.1, Baso # (Auto) 0.0 10/21/18 22:48: Sodium 138, Potassium 5.3 H, Chloride 98, Carbon Dioxide 36 H, Anion Gap 9.3, BUN 12, Creatinine 0.52 L, Estimated Creat Clear 101, Estimated GFR 121, Est GFR ( Amer) 146, Glucose 129 H, Calcium 8.7, Total Bilirubin 0.3, AST 21, ALT 23, Alkaline Phosphatase 70, Total Protein 7.7, Albumin 3.1 L, Globulin 4.6 H, Albumin/Globulin Ratio 0.7 L 10/22/18 05:35: WBC 6.8, RBC 4.14 L, Hgb 13.5, Hct 40.5, MCV 97.9, MCH 32.7 H, M CHC 33.5, RDW 17.2, Plt Count 125 L D, MPV 7.9, Neut % (Auto) 77.4, Lymph % (Auto) 14.5, Castro % (Auto) 6.0, Eos % (Auto) 1.7, Baso % (Auto) 0.3, Neut # (Auto) 5.3, Lymph # (Auto) 1.0, Castro # (Auto) 0.4, Eos # (Auto) 0.1, Baso # (Auto) 0.0 10/22/18 05:35: Sodium 141, Potassium 4.8, Chloride 99, Carbon Dioxide 41 H*, Anion Gap 5.8, BUN 10, Creatinine 0.72 D, Estimated Creat Clear 60, Estimated GFR 83, Est GFR ( Amer) 100 D, Glucose 114 H, Calcium 8.2 L 10/22/18 05:35: Random Gentamicin 7.2 10/22/18 13:18: Random Gentamicin 1.9 L Microbiology Results 10/22/18 14:45 Wrist - Left Gram Stain - Final 10/22/18 14:45 Wrist - Left Surgical Biopsy Culture - Pending 10/22/18 14:45 Wrist - Left - Pending 10/22/18 14:45 Wrist - Left - Pending Exam General appearance: alert, active, awake, no acute distress Cardiovascular: regular rate & rhythm, normal peripheral pulses Respiratory: No respiratory distress noted. ABD: soft and non tender On examination of the left wrist/upper extremity, the sugar tong splint is in place. The splint is clean dry and intact. She has some swelling of the fingers as to be expected. Distal circulation is intact and capillary refill is brisk. No stretch pain or other signs of compartment syndrome are noted. Progress Note: A&P (1) Open fracture of wrist Status: Acute Current Visit: Yes (2) Obesity Status: Acute Current Visit: Yes Assessment and Plan for All Diagnoses:: Patient is doing well with no apparent problems. Recommend continuation of IV antibiotics today. We will change the dressings tomorrow and if the wound is healthy she can be discharged back to the custodial with oral antibiotics. I have discussed this with Dr. Michaels. Continue elevation, icing, as needed pain medication and encourage the patient to mobilize the fingers. Medical management as per Dr. Michaels.
--- NOTE | 2018-10-24 09:26 | Progress Note ---
Subjective Date: 10/24/18 Time: 08:45 Principal diagnosis: Grade 1 open fracture, left distal radius Interval history: Patient is status post wound debridement and ORIF left distal radius fracture post op day #2. Patient is lying down in bed. On questioning patient says she is doing well. However, according to nursing staff, patient was very agitated overnight and partly pulled off her bandages, splint. Patient has severe dementia and multiple other medical problems and most of the time it is difficult to communicate with her. No history of any nausea or vomiting. No history of any fevers, cough, chest pain, shortness of breath or palpitations. PN: Obj Ex Vital signs: Temp Pulse Resp BP Pulse Ox 97.9 F 74 21 156/76 H 100 10/24/18 08:00 10/24/18 08:00 10/24/18 08:00 10/24/18 08:00 10/24/18 08:00 Narrative: Exam General appearance: alert, active, awake, no acute distress Cardiovascular: regular rate & rhythm, normal peripheral pulses Respiratory: No respiratory distress noted. ABD: soft and non tender On examination of the left wrist/upper extremity, the splint is partly displaced with some of the Dio wrap removed. I removed the splint and surgical dressings completely and examined the wrist. There is moderate swelling and ecchymosis as to be expected at this stage. The surgical incision looks clean, dry and healthy. The suture laceration over the ulnar aspect of the wrist also appears healthy. No bleeding or discharge noted. No erythema or induration noted. There is diffuse swelling of her hand and fingers. She is able to actively mobilize the fingers. Capillary refill is brisk. Nontender over the elbow joint. No stretch pain or other signs of compartment syndrome are noted. I have cleaned the incision and the laceration with Betadine solution. Sterile dressings were applied with Betadine soaked gauze. I then applied a well-padded long-arm cast with with the elbow at 90 degrees and forearm in full pronation with Ortho-Glass. Progress Note: A&P (1) Open fracture of wrist Status: Acute (2) Obesity Status: Acute Assessment and Plan for All Diagnoses:: Overall patient is doing well and no complications are evident at this stage. Dressings were changed and a well-padded long-arm cast was applied. Wound cultures did not show any growth at 24 hours. From an orthopedic standpoint, patient can be discharged back to the intermediate with oral antibiotics if medically appropriate. I have discussed this with Dr. Michaels and we we have decided to send her with oral Bactrim and clindamycin. I will see her back for follow-up in my office in 5-7-day's time for wound check. Recommended continuation of elevation, icing, as needed pain medication and encourage the patient to mobilize the fingers. Medical management as per Dr. Michaels.
--- NOTE | 2018-10-24 11:52 | Discharge Summary ---
General - General Admission date:: 10/22/18 Discharge date: 10/24/18 HPI HPI: this wf from [facility] had fall last pm with open fx lt wrist - pt or ecf with no specific details - she had recent eye surg - does have some hx of falls - she was seen in the ed with open fx lt wrist - no other fx noted Hospital Course Hospital Course: this wf fell at [facility] and has hx of falls - she was seen in the ed and had open fx lt wrist - she was admitted on iv abx and saw ortho-pt had surg -Patient is an 58-year-old female who sustained a grade 1 open displaced fracture of her left distal radius (Colles fracture) when she fell down at the [facility]. The distal radius fracture is displaced, comminuted and unstable with intra- articular extension. Patient was admitted from the ER for observation, started on IV antibiotics and prepared for surgery. Following a detailed discussion with the patient's healthcare proxy about the management options including both nonsurgical and surgical, she elected to proceed with surgical remediation. I discussed the details of the procedure, risks and benefits, alternatives and the expected outcomes. The complications discussed include but are not limited to infection, bleeding, injury to nerves, blood vessels and tendons, malunion, nonunion, loss of fixation, stiffness, CRPS as well as the anesthetic complications including heart attack, stroke and even . I also discussed about the likely need for multiple surgical procedures. The operative side was marked and the consent form was reviewed and signed pt has did well and released by ortho to be followed next week - will discuss with [facility] staff about falls- Objective Vital signs: Temp Pulse Resp BP Pulse Ox 97.9 F 74 22 156/76 H 100 10/24/18 08:00 10/24/18 08:00 10/24/18 09:26 10/24/18 08:00 10/24/18 08:00 no acute distress, obese - *Routine HEENT Exam Head: Present: normocephalic Eye: Present: EOMI, PERRL ENT: Present: mucous membranes dry - *Routine Neck Exam Absent: JVD - *Routine Respiratory Exam Present: decreased breath sounds. Absent: respiratory distress - *Routine Cardiovascular Exam Present: RRR, murmur, S4 - *Routine Abdominal Exam Present: soft - *Routine Extremities Exam Comments: cast on lt upper ext - *Routine Skin Exam Present: intact - *Routine Neurological Exam Present: CN II-XII intact - Routine Psychiatric Exam Present: unable to assess Results Labs on day of discharge: Preliminary micro results at discharge 10/22/18 14:45 Surgical Biopsy Culture - Preliminary Wrist - Left NO GROWTH AFTER 24 HOURS DS: Diagnosis - Discharge Diagnosis (1) Open fracture of wrist Status: Acute (2) Obesity Status: Acute (3) Multiple falls Status: Acute (4) Multiple sclerosis Status: Acute Discharge Plan - Patient Discharge Instructions ACTIVITY: Continue current activity DIET: continue same diet Patient Instructions: Multiple Sclerosis -- Adult, DI for Open Reduction Internal Fixation Surgery, DI for Surgical Site Infection - Follow up Plan Disposition: [facility] Home Medications: Home Medications Medication Instructions Recorded Confirmed Type acetaminophen 500 mg capsule 500 mg PO Q4HP PRN cap 01/17/18 10/22/18 History albuterol sulfate HFA 90 2 puff INHALATION TID g 01/17/18 10/21/18 History mcg/actuation aerosol inhaler dextromethorphan-guaifenesin 10 10 ml PO QIDP PRN 01/17/18 10/21/18 History mg-100 mg/5 mL syrup diazepam 5 mg tablet 5 mg PO BID tab 01/17/18 10/21/18 History divalproex 250 mg tablet,delayed 500 mg PO HS 01/17/18 10/21/18 History release furosemide 40 mg tablet 40 mg PO BID tab 01/17/18 10/21/18 History lactulose 10 gram/15 mL oral 30 ml PO DAILYP PRN 01/17/18 10/21/18 History solution loperamide 2 mg capsule 2 mg PO Q3HP PRN 01/17/18 10/21/18 History multivitamin with minerals capsule 1 cap PO DAILY 01/17/18 10/22/18 History norethindrone acetate 5 mg tablet 5 mg PO DAILY tab 01/17/18 10/21/18 History olanzapine 15 mg tablet 30 mg PO HS tab 01/17/18 10/22/18 History potassium chloride ER 10 mEq 10 meq PO DAILY tab 01/17/18 10/21/18 History tablet,extended release sertraline 100 mg tablet 100 mg PO DAILY 01/17/18 10/22/18 History sertraline 50 mg tablet 50 mg PO DAILY 02/23/18 11/28/18 History Carvedilol [Coreg 12.5mg 12.5 mg PO BID 10/22/18 10/22/18 History Tablet] Carvedilol [Coreg 25mg Tablet] 25 mg PO BID 10/22/18 10/22/18 History Ipratropium/Albuterol Sulfate 3 ml IH QIDP PRN 10/22/18 10/22/18 History [Duoneb 3mL neb] Prescriptions/Medication Reconciliation: New Clindamycin HCl [Clindamycin HCl 300mg Cap] 300 mg PO Q8 #21 cap Sulfamethoxazole/Trimethoprim [Bactrim DS tablet] 1 each PO BID #14 tab Continue lactulose 10 gram/15 mL oral solution 30 ml PO DAILYP PRN PRN Reason: bowel care loperamide 2 mg capsule 2 mg PO Q3HP PRN PRN Reason: Diarrhea dextromethorphan-guaifenesin 10 mg-100 mg/5 mL syrup 10 ml PO QIDP PRN PRN Reason: Cough diazepam 5 mg tablet 5 mg PO BID tab divalproex 250 mg tablet,delayed release 500 mg PO HS furosemide 40 mg tablet 40 mg PO BID tab norethindrone acetate 5 mg tablet 5 mg PO DAILY tab olanzapine 15 mg tablet 30 mg PO HS tab albuterol sulfate HFA 90 mcg/actuation aerosol inhaler 2 puff INHALATION TID g sertraline 100 mg tablet 100 mg PO DAILY Carvedilol [Coreg 12.5mg Tablet] 12.5 mg PO BID Ipratropium/Albuterol Sulfate [Duoneb 3mL neb] 3 ml IH QIDP PRN PRN Reason: Shortness Of Breath Or Wheezing Discontinued potassium chloride ER 10 mEq tablet,extended release 10 meq PO DAILY tab sertraline 50 mg tablet 50 mg PO DAILY Carvedilol [Coreg 25mg Tablet] 25 mg PO BID No Action acetaminophen 500 mg capsule 500 mg PO Q4HP PRN cap PRN Reason: pain/fever multivitamin with minerals capsule 1 cap PO DAILY
== END 2018-10-24 13:30 ==
LOC: 2ND 20:51 → ER 20:51 → 2ND 10-22 00:06
PROVIDERS: ADMIT Emergency Medicine; ATTEND Emergency Medicine

== ENCOUNTER → 2018-10-28 13:29 | Outpatient (CLI) | payer MEDICARE, MEDICAID, SELFPAY ==
--- NOTE | 2018-10-28 13:33 | XR_ITS ---
XR wrist LT min 3V HISTORY follow-up fracture/ORIF ITS.REASON: 1 week sp ORIF lt distal radius ORDERING PHYSICIAN: Rashid Forbes MD PATIENT AGE: 58 years Comparison: 10/22/2018 FINDINGS: There is an overlying cast in place which obscures fine detail of the bone. Status post ORIF comminuted distal radial fracture with anterior bone plate in place with good alignment of the fracture fragments. Antibiotic needs once again noted are somewhat less dense compared to the previous exam. IMPRESSION: Good alignment status post ORIF left distal radial fracture
== END ==
PROVIDERS: PCP Emergency Medicine; Visit Provider Orthopaedic Surgery
DX: Z48.89 Encounter for other specified surgical aftercare (principal)
CPT/HCPCS: 73110

== ENCOUNTER → 2018-11-06 15:13 | Outpatient (CLI) | payer MEDICARE, MEDICAID, SELFPAY ==
--- NOTE | 2018-11-06 15:16 | XR_ITS ---
XR wrist LT min 3V HISTORY follow-up ORIF left wrist ITS.REASON: sp 2 week ORIF lt wrist ORDERING PHYSICIAN: Rashid Forbes MD PATIENT AGE: 58 years Comparison: 10/28/2018 FINDINGS: Status post ORIF distal radial fracture. There is a overlying cast which secures bony detail. The bone plate remains in position with good alignment of the fracture fragments. This is all been antibiotic beads are noted about the wrist. IMPRESSION: There remains good alignment of the distal radial fracture status post ORIF
== END ==
PROVIDERS: Visit Provider Orthopaedic Surgery
DX: S52.502B Unspecified fracture of the lower end of left radius, initial encounter for open fracture type I or II (principal); Z09 Encounter for follow-up examination after completed treatment for conditions other than malignant neoplasm
CPT/HCPCS: 73110

== ENCOUNTER → 2018-12-03 13:12 | Outpatient (CLI) | payer MEDICARE, MEDICAID, SELFPAY ==
--- NOTE | 2018-12-03 13:21 | XR_ITS ---
XR wrist LT min 3V HISTORY ITS.REASON: sp ORIF LT wrist dos 10/22/18 ORDERING PHYSICIAN: Rashid Forbes MD PATIENT AGE: 58 years Comparison: 11/06/2018 FINDINGS: Casted been removed. Bone plate is present at the distal radius anteriorly with multiple screws stabilizing the comminuted distal radial fracture. Fracture line is still visible along the ulnar aspect of the distal radius with intra-articular extension. There is myositis ossificans of the distal forearm anteriorly and along the distal aspect of the ulna. IMPRESSION: Good alignment status post ORIF distal radial fracture with persistent fracture line visible. Myositis ossificans
== END ==
PROVIDERS: PCP Emergency Medicine; Visit Provider Orthopaedic Surgery
DX: Z48.89 Encounter for other specified surgical aftercare (principal)
CPT/HCPCS: 73110

== ENCOUNTER 2018-12-06 13:19 | Observation (INO) ==
--- NOTE | 2018-12-06 13:26 | Emergency Department Note ---
ED Disposition Clinical Impression: COPD exacerbation, Choking episode, Obesity (BMI 30-39.9), Schizophrenia, DNR (do not resuscitate), Dysphagia Disposition: Still a Patient Condition on Discharge: Fair Referrals: Beau Michaels MD [Primary Care Provider] - - Critical Care Critical Care Time: No Attestation: On , the high probability of a clinically significant, sudden or life threatening deterioration of the following system(s) required my full and direct attention, intervention and personal management. The time I documented below is in addition to time spent performing reported procedures but includes the following listed in this critical care notation. Medical Decision Making - [place] Inquiry Pt receiving controlled substance: No [place] was queried for this patient: No Vital Signs: 12/06/18 13:19 12/06/18 14:05 12/06/18 14:48 Temperature 97.7 F Temperature Source Temporal Artery Scan Pulse Rate [Right Brachial] 82 91 H Respiratory Rate 22 18 Blood Pressure [Right Arm] 125/87 138/67 Blood Pressure Mean [Right Arm] 99 90 Blood Pressure Source [Right Arm] Automatic Cuff Automatic Cuff Blood Pressure Position [Right Arm] Sitting Sitting 02 Sat by Pulse Oximetry 88 L 84 L 93 L Oxygen Delivery Method Room Air Room Air Nasal Cannula Oxygen Flow Rate (LPM) 2 12/06/18 15:30 12/06/18 16:00 Temperature Temperature Source Pulse Rate [Right Brachial] 77 84 Respiratory Rate 18 18 Blood Pressure [Right Arm] 134/79 137/68 Blood Pressure Mean [Right Arm] 97 91 Blood Pressure Source [Right Arm] Automatic Cuff Automatic Cuff Blood Pressure Position [Right Arm] Sitting Sitting 02 Sat by Pulse Oximetry 93 L 94 L Oxygen Delivery Method Nasal Cannula Nasal Cannula Oxygen Flow Rate (LPM) 2 2 - Lab Data Lab Results 12/06/18 13:49: WBC 6.1, RBC 4.05 L, Hgb 14.5, Hct 39.9, MCV 98.6, MCH 35.8 H, MCHC 36.3 H, RDW 17.5, Plt Count 222, MPV 8.6, Neut % (Auto) 72.5, Lymph % (Auto) 20.5, [place] % (Auto) 5.1, Eos % (Auto) 1.6, Baso % (Auto) 0.4, Neut # (Auto) 4.4, Lymph # (Auto) 1.2, [place] # (Auto) 0.3, Eos # (Auto) 0.1, Baso # (Auto) 0.0 Result diagrams: 12/06/18 13:49 Orders (Tests/Meds): ED MEDICATIONS Discontinued Medications Generic Name Dose Route Start Last Admin Trade Name Jerry PRN Reason Stop Dose Admin Albuterol/Ipratropium 3 ml 12/06/18 13:23 12/06/18 14:05 Duoneb 3ml Neb IH 12/06/18 13:24 3 ml ONCE ONE Administration Famotidine 20 mg 12/06/18 13:23 12/06/18 15:05 Pepcid 20mg/2ml Vial IV 12/06/18 13:24 20 mg ONCE ONE Administration Methylprednisolone Sodium Succinate 125 mg 12/06/18 13:23 12/06/18 15:05 Solu-Medrol 125mg/2ml Vial IV 12/06/18 13:24 125 mg ONCE ONE Administration ORDERS Category Date Time Status Cardiac Enzymes Stat Lab 12/06/18 13:49 Ordered Comprehensive Metabolic Panel Stat Lab 12/06/18 13:49 Ordered Valproic Acid, (Depakene) Stat Lab 12/06/18 13:49 Ordered ABG [Arterial Blood Gas] Stat RT 12/06/18 13:21 Ordered - CT Data CT Scan: Chest Time Received: 15:[address] Reviewed: Yes: I have viewed the radiologist's interpretation Preliminary Findings: Abnormal Findings Narrative: IMPRESSION: 1. There is a mixed air and soft tissue density in the mid esophageal region as described above and may be related to an impacted food bolus 2. No evidence of tracheobronchial tree foreign-body. 3. No evidence of pneumomediastinum Medical Decision Narrative: IMPRESSION: 1. There is a mixed air and soft tissue density in the mid esophageal region as described above and may be related to an impacted food bolus 2. No evidence of tracheobronchial tree foreign-body. 3. No evidence of pneumomediastinum I discussed the above findings with Dr. Milton on-call surgeon and considering that she is in end-stage COPD, DNR and intermediate resident will we decided to go the conservative route by observing her on clear and advance to full liquids. If there is no progress she will need a modified barium swallow and possibly EGD if needed. I discussed the above with Dr. Doe was seasoning sprayer for Dr. Michaels who agreed to admit the patient for IV fluids and observation. General Adult HPI - General Chief complaint: PAIN Stated complaint: choked on meat Time Seen by Provider: 12/06/18 13:24 - History of Present Illness HPI narrative: 58 years old DNR white female with a schizophrenia end-stage COPD oxygen dependent intermediate resident. Today at 1245 patient was eating her lunch when she got choked on a turkey sandwich, intermediate resident performed CPR and dislodged the bread but they did not see the [place] coming up. Per intermediate staff the patient was without oxygen for 4 minutes upon EMS arrival saturations 85% they applied oxygen and is currently 89%. Patient is alert complains of generalized fatigue but no focal pain. Onset (ago): minute(s) (40 minutes prior to arrival.) Relieving factors: none Exacerbating factors: none Associated symptoms: denies other symptoms Treatments prior to arrival: other (CPR per nursing staff. ) - Related Data Home Medications Medication Instructions Recorded Confirmed acetaminophen 500 mg capsule 500 mg PO Q4HP PRN cap 01/17/18 12/03/18 albuterol sulfate HFA 90 2 puff INHALATION TID g 01/17/18 12/03/18 mcg/actuation aerosol inhaler dextromethorphan-guaifenesin 10 10 ml PO QIDP PRN 01/17/18 12/03/18 mg-100 mg/5 mL syrup diazepam 5 mg tablet 5 mg PO BID tab 01/17/18 12/03/18 divalproex 250 mg tablet,delayed 500 mg PO HS 01/17/18 12/03/18 release furosemide 40 mg tablet 40 mg PO BID tab 01/17/18 12/03/18 lactulose 10 gram/15 mL oral 30 ml PO DAILYP PRN 01/17/18 12/03/18 solution loperamide 2 mg capsule 2 mg PO Q3HP PRN 01/17/18 12/03/18 multivitamin with minerals capsule 1 cap PO DAILY 01/17/18 12/03/18 norethindrone acetate 5 mg tablet 5 mg PO DAILY tab 01/17/18 12/03/18 olanzapine 15 mg tablet 30 mg PO HS tab 01/17/18 12/03/18 sertraline 100 mg tablet 100 mg PO DAILY 01/17/18 12/03/18 Carvedilol [Coreg 12.5mg 12.5 mg PO BID 10/22/18 12/03/18 Tablet] Ipratropium/Albuterol Sulfate 3 ml IH QIDP PRN 10/22/18 12/03/18 [Duoneb 3mL neb] Previous Rx's Medication Instructions Recorded Clindamycin HCl [Clindamycin HCl 300 mg PO Q8 #21 cap 10/24/18 300mg Cap] Sulfamethoxazole/Trimethoprim 1 each PO BID #14 tab 10/24/18 [Bactrim DS tablet] Allergies Allergy/AdvReac Type Severity Reaction Status Date / Time No Known Allergies Allergy Verified 12/03/18 13:44 [facility] History - Hepatitis A Screen Attestation statement:: This patient has been screened for Hepatitis A risk factors. I have reviewed the patient's past medical history: Yes Medical History: Reports:: Congestive Heart Failure, Diabetes Mellitus Type 2, Hyperlipidemia, Hypertension, Lung Disease Denies:: Cancer, Diabetes Mellitus Type 1, Internal Pacemaker, MRSA, Seizures Other Medical History: Reports: Anemia, Cataracts, Hormone Therapy Laterality Cases: Left: Other Other Surgeries: Yes: No Previous Surgery. No: Pacemaker Amputation: No Fractures: No - Social History Smoking Status: Never smoker Alcohol Intake: never Occupational Status: other Housing: intermediate Household Members: none Family Hx:: Unable to obtain ROS Obtained: Yes All systems reviewed & no additional complaints Physical Exam - General General appearance: alert, in no apparent distress - Head Head exam: atraumatic, normocephalic, normal inspection - Eye Eye exam: Present: normal appearance, PERRL, EOMI. Absent: scleral icterus, nystagmus - ENT ENT exam: Present: normal oropharynx, mucous membranes moist, TM's normal bilaterally, normal external ear exam, other (Poor dentition but clear and open oropharynx. ) - Neck Neck exam: Present: normal inspection, full ROM, trachea midline. Absent: meningismus, lymphadenopathy - Chest Chest inspection: Present: normal inspection, symmetric chest wall rise. Absent: tenderness - Respiratory Respiratory exam: Present: normal lung sounds bilaterally, wheezes, other (Minimal bilateral posterior lung wheeze). Absent: respiratory distress - Cardiovascular Cardiovascular exam: Present: regular rate, normal rhythm, normal heart sounds. Absent: JVD - Abdominal Exam Abdominal exam: Present: soft, normal bowel sounds. Absent: distention, tenderness, guarding, rebound, rigidity, Douglas's sign, tenderness at McBurney's Point - Extremities Exam Extremities exam: Present: normal inspection, full ROM, normal capillary refill, pedal edema (Trace bilateral pedal edema. ). Absent: tenderness, calf tenderness - Back Exam Back exam: Present: normal inspection. Absent: tenderness, CVA tenderness (R), CVA tenderness (L) - Neurological Exam Neurological exam: Present: alert, CN II-XII intact, motor sensory deficit, re flexes normal (She is alert oriented to place an day, not oriented to the current to aspirin, her gait was not tested) - Psychiatric Psychiatric exam: Present: normal affect, normal mood - Skin Skin exam: Present: warm, dry, intact, normal color - Lymphatic Lymphatic Findings: no adenopathy
[2018-12-06 14:15] LABS: Basophils % 0.4 % (0.1-2.0); Eosinophils # 0.1 K/mm3 (0.0-0.4); Eosinophils % 1.6 % (0.1-12.0); Hematocrit 39.9 % (37.0-47.0); Hemoglobin 14.5 g/dL (12.2-16.2); Lymphocytes # 1.2 K/mm3 (0.7-4.5); Lymphocytes % 20.5 % (10-50); Mean Corpuscular HGB Conc 36.3 g/dL (31.8-35.4); Mean Corpuscular Hemoglobin 35.8 pg (27.0-31.2); Mean Corpuscular Volume 98.6 fl (81-99); Mean Platelet Volume 8.6 fl (7.4-10.4); Monocytes # 0.3 K/mm3 (0.1-1.0); Monocytes % 5.1 % (1.7-9.3); Neutrophils # 4.4 K/mm3 (1.8-7.8); Neutrophils % 72.5 % (37.0-80.0); Platelet Count 222 K/mm3 (142-424); Red Blood Count 4.05 M/mm3 (4.20-5.40); Red Cell Distribution Width 17.5 % (11.5-17.5); White Blood Count 6.1 K/mm3 (4.8-10.8)
[2018-12-06 17:47] LABS: Albumin Level 3.1 gm/dL (3.4-5.0); Albumin/Globulin Ratio 0.6 (1.1-1.8); Anion Gap 8.9 mEq/L (5-15); Bilirubin,Total 0.4 mg/dL (0.2-1.0); Calcium 8.8 mg/dL (8.5-10.1); Globulin 4.8 gm/dl (1.3-3.2); Potassium 3.9 mmoL/L (3.5-5.1); Total Protein,Serum 7.9 gm/dL (6.4-8.2); Valproic Acid, (Depakene) 18.2 ug/mL (50-100)
[2018-12-07 06:37] LABS: Eosinophils % 0.3 % (0.1-12.0); Hemoglobin 13.6 g/dL (12.2-16.2); Lymphocytes # 0.7 K/mm3 (0.7-4.5); Lymphocytes % 10.4 % (10-50); Mean Corpuscular HGB Conc 36.8 g/dL (31.8-35.4); Mean Corpuscular Hemoglobin 35.4 pg (27.0-31.2); Mean Corpuscular Volume 96.2 fl (81-99); Mean Platelet Volume 7.4 fl (7.4-10.4); Monocytes # 0.2 K/mm3 (0.1-1.0); Monocytes % 2.7 % (1.7-9.3); Neutrophils # 5.6 K/mm3 (1.8-7.8); Neutrophils % 86.6 % (37.0-80.0); Platelet Count 191 K/mm3 (142-424); Red Blood Count 3.85 M/mm3 (4.20-5.40); Red Cell Distribution Width 18.3 % (11.5-17.5); White Blood Count 6.4 K/mm3 (4.8-10.8)
[2018-12-07 06:49] LABS: Anion Gap 6.9 mEq/L (5-15); Calcium 8.5 mg/dL (8.5-10.1); Potassium 3.9 mmoL/L (3.5-5.1)
[2018-12-07 07:02] LABS: Lymphocytes % 2 % (10-50); Neutrophils % 92 % (42-76); RBC Morphology Normal; Total Cells Counted 100
--- NOTE | 2018-12-07 08:20 | Pharmacy Consult Notes ---
[facility] Pharmacy VTE Monitoring - Patient Demographics Admission date: 12/06/18 Report Date: 12/07/18 Time: 08:20 Allergies/Adverse Reactions: Patient Allergies No Known Allergies Allergy (Verified 12/03/18 13:44) Height: 1.63 m Weight: 127.5 kg Patient Problems: Current Active Problems COPD exacerbation (Acute) Choking episode (Acute) Obesity (BMI 30-39.9) (Acute) Schizophrenia (Acute) DNR (do not resuscitate) (Acute) Dysphagia (Acute) - VTE Risk Labs: VTE Related Lab Results Hgb 13.6 g/dL (12.2-16.2) 12/07/18 06:06 Hct 37.0 % (37.0-47.0) 12/07/18 06:06 Plt Count 191 K/mm3 (142-424) 12/07/18 06:06 BUN 12 mg/dL (7-18) 12/07/18 06:06 Creatinine 0.77 mg/dL (0.55-1.02) 12/07/18 06:06 Estimated Creat Clear 68 mL/min (50-200) 12/07/18 06:06 - Prophylaxis VTE Prophylaxis Ordered?: Yes Types of VTE Prophylaxis: TEDS Knee High Location of Applied Device: Bilateral Lower Extremeties - VTE Diagnosis Confirmed Treatment or plan recommended: Continue Current Treatment
--- NOTE | 2018-12-07 08:55 | Consult Report ---
*Admission Date: 12/06/18 *Chief complaint: Possible esophageal foreign body *History of present illness: This is a 58-year-old female seen in consultation after presenting to the emergency department yesterday with a "choking episode". Evaluation included a CT scan that showed possible retained esophageal foreign body. The patient has been able to tolerate clear liquids since admission. Please see HPI from emergency department evaluation forwarded below: 58 years old DNR white female with a schizophrenia end-stage COPD oxygen dependent long term resident. Today at 1245 patient was eating her lunch when she got choked on a turkey sandwich, long term resident performed CPR and dislodged the bread but they did not see the [place] coming up. Per long term staff the patient was without oxygen for 4 minutes upon EMS arrival saturations 85% they applied oxygen and is currently 89%. Patient is alert complains of generalized fatigue but no focal pain. Review of Systems - Constitutional Denies body ache(s) - *Cardiovascular Denies chest pain - *Gastrointestinal Denies abdominal pain - Hematologic/Lymphatic Denies easy bleeding [facility] History Medical History: Reports:: Congestive Heart Failure, Diabetes Mellitus Type 2, Hyperlipidemia, Hypertension, Lung Disease Denies:: Cancer, Diabetes Mellitus Type 1, Internal Pacemaker, MRSA, Seizures Have you ever received a pneumonia vaccine?: Yes Have you received a flu vaccine this season?: Yes Other Medical History: Reports: Anemia, Cataracts, Hormone Therapy Laterality Cases: Left: Other Other Surgeries: Yes: No Previous Surgery. No: Pacemaker Amputation: No Fractures: No - *Social History Educational Level: Attended High School Smoking Status: Never smoker Alcohol Intake: never Occupational Status: disabled, other Housing: long term Household Members: none Travel in the last 8 weeks: None - Psychiatric History Expresses thoughts of harming self/others: None Suicide Plan Description: No Plan *Family Hx:: Unable to obtain Meds Home Medications Medication Instructions Recorded Confirmed Type acetaminophen 500 mg capsule 500 mg PO Q4HP PRN cap 01/17/18 12/06/18 History albuterol sulfate HFA 90 2 puff INHALATION TID g 01/17/18 12/06/18 History mcg/actuation aerosol inhaler diazepam 5 mg tablet 5 mg PO BID tab 01/17/18 12/06/18 History furosemide 40 mg tablet 40 mg PO BID tab 01/17/18 12/06/18 History lactulose 10 gram/15 mL oral 30 ml PO DAILYP PRN 01/17/18 12/06/18 History solution loperamide 2 mg capsule 2 mg PO Q3HP PRN 01/17/18 12/06/18 History multivitamin with minerals capsule 1 cap PO DAILY 01/17/18 12/06/18 History norethindrone acetate 5 mg tablet 5 mg PO DAILY tab 01/17/18 12/06/18 History olanzapine 15 mg tablet 30 mg PO HS tab 01/17/18 12/06/18 History sertraline 100 mg tablet 100 mg PO DAILY 01/17/18 12/06/18 History Carvedilol [Coreg 12.5mg 12.5 mg PO BID 10/22/18 12/06/18 History Tablet] Tramadol HCl [Tramadol 50mg 100 mg PO QID 12/06/18 12/06/18 History Tab] guaiFENesin [Robafen] 10 ml PO QIDP PRN 12/06/18 12/06/18 History Divalproex Sodium [Depakote ER] 500 mg PO HS 12/07/18 12/07/18 History Allergies Allergy/AdvReac Type Severity Reaction Status Date / Time No Known Allergies Allergy Verified 12/03/18 13:44 Exam Vital signs and Labs for Last 24 Hours: Temp Pulse Resp BP Pulse Ox 98.2 F 86 18 167/77 H 93 L 12/07/18 08:00 12/07/18 08:00 12/07/18 08:00 12/07/18 08:00 12/07/18 08:25 Laboratory Results - last 24 hr 12/06/18 13:49: WBC 6.1, RBC 4.05 L, Hgb 14.5, Hct 39.9, MCV 98.6, MCH 35.8 H, MCHC 36.3 H, RDW 17.5, Plt Count 222, MPV 8.6, Neut % (Auto) 72.5, Lymph % (Auto) 20.5, [place] % (Auto) 5.1, Eos % (Auto) 1.6, Baso % (Auto) 0.4, Neut # (Auto) 4.4, Lymph # (Auto) 1.2, [place] # (Auto) 0.3, Eos # (Auto) 0.1, Baso # (Auto) 0.0 12/06/18 16:53: Sodium 138, Potassium 3.9, Chloride 95 L, Carbon Dioxide 38 H, Anion Gap 8.9, BUN 10, Creatinine 0.78, Estimated Creat Clear 73, Estimated GFR 76, Est GFR ( Amer) 91, Glucose 129 H, Calcium 8.8, Total Bilirubin 0.4, AST 59 H, ALT 84 H, Alkaline Phosphatase 81, Total Creatine Kinase 73, CK-MB (CK-2) 0.9, CK-MB (CK-2) Rel Index 1.2, Troponin I 0.04, Total Protein 7.9, Albumin 3.1 L, Globulin 4.8 H, Albumin/Globulin Ratio 0.6 L, Total Valproic Acid 18.2 L 12/07/18 06:06: WBC 6.4, RBC 3.85 L, Hgb 13.6, Hct 37.0, MCV 96.2, MCH 35.4 H, MCHC 36.8 H, RDW 18.3 H, Plt Count 191, MPV 7.4, Neut % (Auto) 86.6 H, Lymph % (Auto) 10.4, [place] % (Auto) 2.7, Eos % (Auto) 0.3, Baso % (Auto) 0.0 L, Neut # (Auto) 5.6, Lymph # (Auto) 0.7, [place] # (Auto) 0.2, Eos # (Auto) 0.0, Baso # (Auto) 0.0, Total Counted 100, Neutrophils % (Manual) 92 H, Band Neutrophils % 6.0, Lymphocytes % (Manual) 2 L, Platelet Estimate Normal, RBC Morphology Normal 12/07/18 06:06: Sodium 137, Potassium 3.9, Chloride 97 L, Carbon Dioxide 37 H, Anion Gap 6.9, BUN 12, Creatinine 0.77, Estimated Creat Clear 68, Estimated GFR 77, Est GFR ( Amer) 93, Glucose 139 H, Calcium 8.5 I & O for Last 24 hours: Intake & Output 12/04/18 12/05/18 12/06/18 12/07/18 11:59 11:59 11:59 11:59 Intake Total 0 / 0 Balance 0 / 0 Weight 281 lb 1.43 oz - Constitutional no acute distress - *Routine Respiratory Exam Absent: respiratory distress - *Routine Cardiovascular Exam Present: RRR - *Routine Abdominal Exam Present: soft Results - Labs 12/07/18 06:06 12/07/18 06:06 Laboratory Results - last 24 hr 12/06/18 13:49: WBC 6.1, RBC 4.05 L, Hgb 14.5, Hct 39.9, MCV 98.6, MCH 35.8 H, M CHC 36.3 H, RDW 17.5, Plt Count 222, MPV 8.6, Neut % (Auto) 72.5, Lymph % (Auto) 20.5, [place] % (Auto) 5.1, Eos % (Auto) 1.6, Baso % (Auto) 0.4, Neut # (Auto) 4.4, Lymph # (Auto) 1.2, [place] # (Auto) 0.3, Eos # (Auto) 0.1, Baso # (Auto) 0.0 12/06/18 16:53: Sodium 138, Potassium 3.9, Chloride 95 L, Carbon Dioxide 38 H, Anion Gap 8.9, BUN 10, Creatinine 0.78, Estimated Creat Clear 73, Estimated GFR 76, Est GFR ( Amer) 91, Glucose 129 H, Calcium 8.8, Total Bilirubin 0.4, AST 59 H, ALT 84 H, Alkaline Phosphatase 81, Total Creatine Kinase 73, CK-MB (CK-2) 0.9, CK-MB (CK-2) Rel Index 1.2, Troponin I 0.04, Total Protein 7.9, Albumin 3.1 L, Globulin 4.8 H, Albumin/Globulin Ratio 0.6 L, Total Valproic Acid 18.2 L 12/07/18 06:06: WBC 6.4, RBC 3.85 L, Hgb 13.6, Hct 37.0, MCV 96.2, MCH 35.4 H, MCHC 36.8 H, RDW 18.3 H, Plt Count 191, MPV 7.4, Neut % (Auto) 86.6 H, Lymph % (Auto) 10.4, [place] % (Auto) 2.7, Eos % (Auto) 0.3, Baso % (Auto) 0.0 L, Neut # (Auto) 5.6, Lymph # (Auto) 0.7, [place] # (Auto) 0.2, Eos # (Auto) 0.0, Baso # (Auto) 0.0, Total Counted 100, Neutrophils % (Manual) 92 H, Band Neutrophils % 6.0, Lymphocytes % (Manual) 2 L, Platelet Estimate Normal, RBC Morphology Normal 12/07/18 06:06: Sodium 137, Potassium 3.9, Chloride 97 L, Carbon Dioxide 37 H, Anion Gap 6.9, BUN 12, Creatinine 0.77, Estimated Creat Clear 68, Estimated GFR 77, Est GFR ( Amer) 93, Glucose 139 H, Calcium 8.5 Assessment and Plan (1) Choking episode Current visit: Yes Status: Acute Category: Medical Code(s): R09.89 - Other specified symptoms and signs involving the circulatory and respiratory systems Seemingly, any esophageal foreign body has cleared as the patient continues to tolerate clear liquids. Her diet will be advanced to full liquids. If she has any difficulty swallowing either a barium swallow or an esophagogastroduodenoscopy will be completed. Preferably, a barium swallow wou ld be completed prior to any procedures that would require sedation (to ensure necessity of said procedure) as she has significant comorbid conditions.
--- NOTE | 2018-12-07 10:59 | History & Physical Report ---
*Admission Date: 12/06/18 *Chief complaint: choking *History of present illness: this wf was sent from [facility] with episode of choking -8 years old DNR white female with a schizophrenia end-stage COPD oxygen dependent halfway resident. Today at 1245 patient was eating her lunch when she got choked on a turkey sandwich, halfway resident performed CPR and dislodged the bread but they did not see the [place] coming up. Per halfway staff the patient was without oxygen for 4 minutes upon EMS arrival saturations 85% they applied oxygen and is currently 89%. Patient is alert complains of generalized fatigue but no focal pain. [facility] History I have reviewed the patient's past medical history: Yes Medical History: Reports:: Congestive Heart Failure, Diabetes Mellitus Type 2, Hyperlipidemia, Hypertension, Lung Disease Denies:: Cancer, Diabetes Mellitus Type 1, Internal Pacemaker, MRSA, Seizures Have you ever received a pneumonia vaccine?: Yes Have you received a flu vaccine this season?: Yes Other Medical History: Reports: Anemia, Cataracts, Hormone Therapy Laterality Cases: Left: Other Other Surgeries: Yes: No Previous Surgery. No: Pacemaker Amputation: No Fractures: No - *Social History Educational Level: Attended High School Smoking Status: Never smoker Alcohol Intake: never Occupational Status: disabled, other Housing: halfway Household Members: none Travel in the last 8 weeks: None - Psychiatric History Expresses thoughts of harming self/others: None Suicide Plan Description: No Plan *Family Hx:: Unable to obtain Review of Systems - Review of Systems Review of systems:: pertinent systems reviewed and negative unless documented below - Constitutional Denies fever(s) - Eyes Denies change in vision - ENT Denies sore throat - *Cardiovascular Reports other (choking episode), Denies chest pain - *Respiratory Reports shortness of breath, Denies cough - *Gastrointestinal Denies abdominal pain - *Genitourinary Denies blood in urine - *Musculoskeletal Denies joint pain, Denies joint swelling - Integumentary/Breasts Denies dry skin - *Neurologic Denies seizure-like activity Meds Home Medications Medication Instructions Recorded Confirmed Type acetaminophen 500 mg capsule 500 mg PO Q4HP PRN cap 01/17/18 12/06/18 History albuterol sulfate HFA 90 2 puff INHALATION TID g 01/17/18 12/06/18 History mcg/actuation aerosol inhaler diazepam 5 mg tablet 5 mg PO BID tab 01/17/18 12/06/18 History furosemide 40 mg tablet 40 mg PO BID tab 01/17/18 12/06/18 History lactulose 10 gram/15 mL oral 30 ml PO DAILYP PRN 01/17/18 12/06/18 History solution loperamide 2 mg capsule 2 mg PO Q3HP PRN 01/17/18 12/06/18 History multivitamin with minerals capsule 1 cap PO DAILY 01/17/18 12/06/18 History norethindrone acetate 5 mg tablet 5 mg PO DAILY tab 01/17/18 12/06/18 History olanzapine 15 mg tablet 30 mg PO HS tab 01/17/18 12/06/18 History sertraline 100 mg tablet 100 mg PO DAILY 01/17/18 12/06/18 History Carvedilol [Coreg 12.5mg 12.5 mg PO BID 10/22/18 12/06/18 History Tablet] Tramadol HCl [Tramadol 50mg 100 mg PO QID 12/06/18 12/06/18 History Tab] guaiFENesin [Robafen] 10 ml PO QIDP PRN 12/06/18 12/06/18 History Divalproex Sodium [Depakote ER] 500 mg PO HS 12/07/18 12/07/18 History Allergies Allergy/AdvReac Type Severity Reaction Status Date / Time No Known Allergies Allergy Verified 12/03/18 13:44 Exam Vital signs and Labs for Last 24 Hours: Temp Pulse Resp BP Pulse Ox 98.2 F 86 18 167/77 H 93 L 12/07/18 08:00 12/07/18 08:00 12/07/18 08:00 12/07/18 08:00 12/07/18 08:25 Laboratory Results - last 24 hr 12/06/18 13:49: WBC 6.1, RBC 4.05 L, Hgb 14.5, Hct 39.9, MCV 98.6, MCH 35.8 H, MCHC 36.3 H, RDW 17.5, Plt Count 222, MPV 8.6, Neut % (Auto) 72.5, Lymph % (Auto) 20.5, Real % (Auto) 5.1, Eos % (Auto) 1.6, Baso % (Auto) 0.4, Neut # (Auto) 4.4, Lymph # (Auto) 1.2, Real # (Auto) 0.3, Eos # (Auto) 0.1, Baso # (Auto) 0.0 12/06/18 16:53: Sodium 138, Potassium 3.9, Chloride 95 L, Carbon Dioxide 38 H, Anion Gap 8.9, BUN 10, Creatinine 0.78, Estimated Creat Clear 73, Estimated GFR 76, Est GFR ( Amer) 91, Glucose 129 H, Calcium 8.8, Total Bilirubin 0.4, AST 59 H, ALT 84 H, Alkaline Phosphatase 81, Total Creatine Kinase 73, CK-MB (CK-2) 0.9, CK-MB (CK-2) Rel Index 1.2, Troponin I 0.04, Total Protein 7.9, Albumin 3.1 L, Globulin 4.8 H, Albumin/Globulin Ratio 0.6 L, Total Valproic Acid 18.2 L 12/07/18 06:06: WBC 6.4, RBC 3.85 L, Hgb 13.6, Hct 37.0, MCV 96.2, MCH 35.4 H, MCHC 36.8 H, RDW 18.3 H, Plt Count 191, MPV 7.4, Neut % (Auto) 86.6 H, Lymph % (Auto) 10.4, Real % (Auto) 2.7, Eos % (Auto) 0.3, Baso % (Auto) 0.0 L, Neut # (Auto) 5.6, Lymph # (Auto) 0.7, Real # (Auto) 0.2, Eos # (Auto) 0.0, Baso # (Auto) 0.0, Total Counted 100, Neutrophils % (Manual) 92 H, Band Neutrophils % 6.0, Lymphocytes % (Manual) 2 L, Platelet Estimate Normal, RBC Morphology Normal 12/07/18 06:06: Sodium 137, Potassium 3.9, Chloride 97 L, Carbon Dioxide 37 H, Anion Gap 6.9, BUN 12, Creatinine 0.77, Estimated Creat Clear 68, Estimated GFR 77, Est GFR ( Amer) 93, Glucose 139 H, Calcium 8.5 I & O for Last 24 hours: Intake & Output 12/04/18 12/05/18 12/06/18 12/07/18 11:59 11:59 11:59 11:59 Intake Total 0 / 0 Balance 0 / 0 Weight 281 lb 1.43 oz - Constitutional no acute distress, morbidly obese - *Routine HEENT Exam Head: Present: normocephalic Eye: Present: EOMI, PERRL ENT: Present: mucous membranes dry Comments: poor dentition - *Routine Neck Exam Present: supple - *Routine Respiratory Exam Present: distant breath sounds - *Routine Cardiovascular Exam Present: RRR, murmur - *Routine Abdominal Exam Present: soft - *Routine Extremities Exam Present: edema, calf tenderness - *Routine Skin Exam Present: intact - *Routine Neurological Exam Present: alert, CN II-XII intact - Routine Psychiatric Exam Present: normal affect Assessment and Plan (1) Choking episode Current visit: Yes Status: Acute Category: Medical Code(s): R09.89 - Other specified symptoms and signs involving the circulatory and respiratory systems (2) Impacted esophageal foreign body Current visit: Yes Status: Acute Category: Medical Code(s): T18.108A - Unspecified foreign body in esophagus causing other injury, initial encounter (3) Obesity (BMI 30-39.9) Current visit: Yes Status: Acute Category: Medical Code(s): E66.9 - Obesity, unspecified (4) Schizophrenia Current visit: Yes Status: Acute Category: Medical Code(s): F20.9 - Schizophrenia, unspecified (5) Hiatal hernia Current visit: Yes Status: Acute Category: Medical Code(s): K44.9 - Diaphragmatic hernia without obstruction or gangrene
[2018-12-07 11:47] LABS: Thyroid Stimulating Hormone 0.45 uIU/ml (0.358-3.740)
--- NOTE | 2018-12-08 07:36 | Progress Note ---
Subjective Patient reports: other (tolerated full liquids. now NPO for barium swallow.) Exam Vital signs and Labs for Last 24 Hours: Temp Pulse Resp BP Pulse Ox 98.4 F 76 20 165/94 H 99 12/08/18 04:00 12/08/18 04:00 12/08/18 04:00 12/08/18 04:00 12/08/18 04:00 Laboratory Results - last 24 hr 12/07/18 11:17: TSH 0.45, Thyroxine (T4) 6.4 I & O for Last 24 hours: Intake & Output 12/05/18 12/06/18 12/07/18 12/08/18 11:59 11:59 11:59 11:59 Intake Total 0 / 0 600 / 600 Balance 0 / 0 600 / 600 Weight 281 lb 1.43 oz 268 lb 4.841 oz - Constitutional no acute distress Progress Note: A&P (1) Choking episode Status: Acute Assessment and plan: tolerating clear liquids and full liquids for over 24 hours. f/u pending BS Current Visit: Yes
--- NOTE | 2018-12-08 12:31 | Discharge Summary ---
General - General Admission date:: 12/06/18 Discharge date: 12/08/18 HPI HPI: this wf was sent from [facility] with episode of choking -8 years old DNR white female with a schizophrenia end-stage COPD oxygen dependent longterm resident. Today at 1245 patient was eating her lunch when she got choked on a turkey sandwich, longterm resident performed CPR and dislodged the bread but they did not see the [place] coming up. Per longterm staff the patient was without oxygen for 4 minutes upon EMS arrival saturations 85% they applied oxygen and is currently 89%. Patient is alert complains of generalized fatigue but no focal pain.pt with abn ct in ed and admitted Hospital Course Hospital Course: pt was seen by surg -his is a 58-year-old female seen in consultation after presenting to the emergency department yesterday with a "choking episode". Evaluation included a CT scan that showed possible retained esophageal foreign body. The patient has been able to tolerate clear liquids since admission. pt did well and and had barium swallow - DINGS: Study is very limited due to patient's inability to be properly positioned. There is a small hiatal hernia. There is narrowing at the distal esophagus. This does expand slightly however, there remains some residual narrowing at the distal esophagus at the region of the hernia. The contrast passes freely into the stomach. IMPRESSION: Limited study. Small hiatal hernia noted with persistent narrowing at the GE junction pt manny be transfered back to [facility] at this time and manny monitor diet Objective Vital signs: Temp Pulse Resp BP Pulse Ox 98.3 F 65 18 176/89 H 99 12/08/18 07:55 12/08/18 07:55 12/08/18 07:55 12/08/18 07:55 12/08/18 08:00 no acute distress, obese - *Routine HEENT Exam Head: Present: normocephalic Eye: Present: EOMI, PERRL ENT: Present: mucous membranes dry - *Routine Neck Exam Present: supple. Absent: JVD - *Routine Respiratory Exam Present: decreased breath sounds - *Routine Cardiovascular Exam Present: RRR, murmur - *Routine Abdominal Exam Present: soft. Absent: tenderness - *Routine Extremities Exam Present: edema. Absent: calf tenderness - *Routine Skin Exam Present: intact - *Routine Neurological Exam Present: alert, CN II-XII intact - Routine Psychiatric Exam Absent: good insight Comments: pt at baseline DS: Diagnosis - Discharge Diagnosis (1) Choking episode Status: Acute (2) Impacted esophageal foreign body Status: Acute (3) Obesity (BMI 30-39.9) Status: Acute (4) Schizophrenia Status: Acute (5) Hiatal hernia Status: Acute Discharge Plan - Patient Discharge Instructions ACTIVITY: Continue current activity DIET: continue same diet Patient Instructions: DI for Chronic Obstructive Pulmonary Disease, DI for Choking Episode, DI for Esophageal Dysphagia - Follow up Plan Disposition: [facility] Home Medications: Home Medications Medication Instructions Recorded Confirmed Type acetaminophen 500 mg capsule 500 mg PO Q4HP PRN cap 01/17/18 12/06/18 History albuterol sulfate HFA 90 2 puff INHALATION TID g 01/17/18 12/06/18 History mcg/actuation aerosol inhaler diazepam 5 mg tablet 5 mg PO BID tab 01/17/18 12/06/18 History furosemide 40 mg tablet 40 mg PO BID tab 01/17/18 12/06/18 History lactulose 10 gram/15 mL oral 30 ml PO DAILYP PRN 01/17/18 12/06/18 History solution loperamide 2 mg capsule 2 mg PO Q3HP PRN 01/17/18 12/06/18 History multivitamin with minerals capsule 1 cap PO DAILY 01/17/18 12/06/18 History norethindrone acetate 5 mg tablet 5 mg PO DAILY tab 01/17/18 12/06/18 History olanzapine 15 mg tablet 30 mg PO HS tab 01/17/18 12/06/18 History sertraline 100 mg tablet 100 mg PO DAILY 01/17/18 12/06/18 History Carvedilol [Coreg 12.5mg 12.5 mg PO BID 10/22/18 12/06/18 History Tablet] Tramadol HCl [Tramadol 50mg 100 mg PO QID 12/06/18 12/06/18 History Tab] guaiFENesin [Robafen] 10 ml PO QIDP PRN 12/06/18 12/06/18 History Divalproex Sodium [Depakote ER] 500 mg PO HS 12/07/18 12/07/18 History Prescriptions/Medication Reconciliation: New Divalproex Sodium [Depakote 250mg (Extended-Release) Tablet] 500 mg PO HS tab.er.24h Continue lactulose 10 gram/15 mL oral solution 30 ml PO DAILYP PRN PRN Reason: bowel care diazepam 5 mg tablet 5 mg PO BID tab furosemide 40 mg tablet 40 mg PO BID tab norethindrone acetate 5 mg tablet 5 mg PO DAILY tab olanzapine 15 mg tablet 30 mg PO HS tab albuterol sulfate HFA 90 mcg/actuation aerosol inhaler 2 puff INHALATION TID g sertraline 100 mg tablet 100 mg PO DAILY Carvedilol [Coreg 12.5mg Tablet] 12.5 mg PO BID guaiFENesin [Robafen] 10 ml PO QIDP PRN PRN Reason: Cough Tramadol HCl [Tramadol 50mg Tab] 100 mg PO QID Divalproex Sodium [Depakote ER] 500 mg PO HS Discontinued loperamide 2 mg capsule 2 mg PO Q3HP PRN PRN Reason: Diarrhea No Action acetaminophen 500 mg capsule 500 mg PO Q4HP PRN cap PRN Reason: pain/fever multivitamin with minerals capsule 1 cap PO DAILY
== END 2018-12-08 14:28 ==
LOC: 2ND 13:19 → ER 13:19 → 2ND 18:02
PROVIDERS: ADMIT Internal Medicine Adolescent Medicine; ATTEND Emergency Medicine
DX: Z66 Do not resuscitate; Z79.899 Other long term (current) drug therapy; J44.9 Chronic obstructive pulmonary disease, unspecified; G35 Multiple sclerosis; Z99.81 Dependence on supplemental oxygen; R13.10 Dysphagia, unspecified
CPT/HCPCS: 36415; 71010; 71045; 71250; 74220; 80048; 80053; 80164; 82550; 82553; 84436; 84443; 84484; 85007; 85025; 94761; 99284; G0378

== ENCOUNTER → 2019-01-15 14:28 | Outpatient (CLI) | payer MEDICARE, MEDICAID, SELFPAY ==
--- NOTE | 2019-01-15 14:36 | XR_ITS ---
XR wrist LT min 3V HISTORY follow-up fracture ITS.REASON: sp ORIF lt wrist/ wound debridement ORDERING PHYSICIAN: Rashid Forbes MD PATIENT AGE: 58 years Comparison: 12/03/2018 FINDINGS: Anterior bone plate remains in place stabilizing the distal radial fracture which is in good alignment. There remains a longitudinal lucency at the distal radius radial fracture line. Soft tissue calcification is present along the ulnar aspect of the distal ulna and the radial and anterior aspect of the distal radius consistent with myositis ossificans. IMPRESSION: Good alignment distal radial fracture with persistent fracture line involving the articular surface of the distal radius Myositis ossificans
== END ==
PROVIDERS: PCP Emergency Medicine; Visit Provider Orthopaedic Surgery
DX: Z09 Encounter for follow-up examination after completed treatment for conditions other than malignant neoplasm (principal)
CPT/HCPCS: 73110

== ENCOUNTER → 2019-10-23 14:19 | Outpatient (CLI) | payer MEDICARE, MEDICAID, SELFPAY ==
[2019-10-23 14:36] LABS: Basophils % 0.3 % (0.1-2.0); Eosinophils # 0.1 K/mm3 (0.0-0.4); Eosinophils % 1.7 % (0.1-12.0); Hematocrit 35.9 % (37.0-47.0); Hemoglobin 12.5 g/dL (12.2-16.2); Lymphocytes # 0.9 K/mm3 (0.7-4.5); Lymphocytes % 13.7 % (10-50); Mean Corpuscular HGB Conc 34.8 g/dL (31.8-35.4); Mean Corpuscular Hemoglobin 34.4 pg (27.0-31.2); Mean Corpuscular Volume 98.6 fl (81-99); Mean Platelet Volume 7.8 fl (7.4-10.4); Monocytes # 0.4 K/mm3 (0.1-1.0); Monocytes % 5.9 % (1.7-9.3); Neutrophils # 5.1 K/mm3 (1.8-7.8); Neutrophils % 78.4 % (37.0-80.0); Platelet Count 242 K/mm3 (142-424); Red Blood Count 3.64 M/mm3 (4.20-5.40); Red Cell Distribution Width 18.6 % (11.5-17.5); White Blood Count 6.5 K/mm3 (4.8-10.8)
[2019-10-23 18:02] LABS: Alanine Aminotransferase 12 U/L (12-78); Albumin Level 2.8 gm/dL (3.4-5.0); Albumin/Globulin Ratio 0.7 (1.1-1.8); Alkaline Phosphatase 65 U/L (46-116); Anion Gap 5.1 mEq/L (5-15); Aspartate Amino Transferase 13 U/L (15-37); Bilirubin,Total 0.3 mg/dL (0.2-1.0); Blood Urea Nitrogen 6 mg/dL (7-18); Calcium 7.9 mg/dL (8.5-10.1); Chloride 90 mmol/L (98-107); Creatinine,Serum 0.73 mg/dL (0.55-1.02); Estimated Glomerular Filt Rate 81 ml/min (>60); GFR (African American) 98 ML/MIN (>60); Glucose 120 mg/dL (74-106); Potassium 4.1 mmoL/L (3.5-5.1); Sodium 136 mmol/L (136-145); Total Protein,Serum 6.8 gm/dL (6.4-8.2); Valproic Acid, (Depakene) 16.5 ug/mL (50-100)
[2019-10-23 18:07] LABS: Carbon Dioxide 45 mmol/L (21.0-32.0)
== END ==
PROVIDERS: Visit Provider Emergency Medicine
DX: R53.83 Other fatigue (principal)
CPT/HCPCS: 80053; 80164; 85025